=== PATIENT | female | born 1935 | race Caucasian/White ===

== ENCOUNTER → 2016-10-18 | Outpatient (CLI) | payer MEDICARE, OTHER ==
[~2016-10-18] MED LIST: ALEN70TA3 PO; ALPR0.25 PO; AMLO5TAB2 PO; FLUO10CA13 PO; MEMA10TA PO; PRIM250T PO; PROP20TA PO
[2016-10-18 10:35] LABS: BASO # 0.1 x10^3/uL (0.0-0.2); BASO % 1 % (0-3); EOS # 0.1 x10^3/uL (0.0-0.7); EOS % 1 % (0-3); HEMATOCRIT 40.4 % (36.0-47.0); HEMOGLOBIN 13.1 g/dL (12.0-15.5); LYMPH # 1.9 x10^3/uL (1.0-4.8); LYMPH % 26 % (24-48); MEAN CORPUSCULAR HEMOGLOBIN 27 pg (25-35); MEAN CORPUSCULAR HGB CONC 32 g/dL (31-37); MEAN CORPUSCULAR VOLUME 84 fL (79-100); MONO # 0.4 x10^3/uL (0.0-1.1); MONO % 5 % (0-9); NEUT # 5.1 x10^3uL (1.8-7.7); NEUT % 67 % (31-73); PLATELET COUNT 227 x10^3/uL (140-400); RED BLOOD COUNT 4.82 x10^6/uL (3.50-5.40); RED CELL DISTRIBUTION WIDTH 15.1 % (11.5-14.5); WHITE BLOOD COUNT 7.5 x10^3/uL (4.0-11.0)
[2016-10-18 10:47] LABS: ALBUMIN 3.3 g/dL (3.4-5.0); CALCIUM 8.5 mg/dL (8.5-10.1); CREATININE 0.7 mg/dL (0.6-1.0); TOTAL BILIRUBIN 0.3 mg/dL (0.2-1.0); TOTAL PROTEIN 6.6 g/dL (6.4-8.2)
[2016-10-18 10:48] LABS: GFR 80.1
== END | disposition home or self-care (01) ==
LOC: SPEC 10:20
PROVIDERS: ATTEND Internal Medicine
DX: I10 Essential (primary) hypertension (principal)
CPT/HCPCS: 36415; 80053; 80061; 85027

== ENCOUNTER → 2016-11-29 | Outpatient (CLI) | payer MEDICARE, OTHER ==
[2016-11-29 14:45] LABS: BACTERIA,URINE MANY /HPF (0-FEW); BILIRUBIN,URINE NEG (NEG); CLARITY,URINE CLOUDY; COLOR,URINE YELLOW; GLUCOSE,URINE NEG (NEG); NITRITE,URINE POS (NEG); UROBILINOGEN,URINE 0.2 mg/dL (0.2 mg/dL); WBC,URINE >40 /HPF (0-4)
[2016-11-29 14:46] LABS: SQUAMOUS EPITHELIAL CELL,UR FEW /LPF
[2016-11-29 14:47] LABS: GRANULAR CASTS,URINE FEW /HPF
== END | disposition home or self-care (01) ==
LOC: SPEC 14:11
PROVIDERS: ATTEND Internal Medicine
DX: N39.0 Urinary tract infection, site not specified (principal)
CPT/HCPCS: 81001

== ENCOUNTER → 2016-12-01 | Outpatient (CLI) | payer MEDICARE, OTHER ==
[2016-12-01 12:48] LABS: BASO # 0.1 x10^3/uL (0.0-0.2); BASO % 1 % (0-3); EOS # 0.1 x10^3/uL (0.0-0.7); EOS % 1 % (0-3); HEMATOCRIT 35.6 % (36.0-47.0); HEMOGLOBIN 11.7 g/dL (12.0-15.5); LYMPH # 1.7 x10^3/uL (1.0-4.8); LYMPH % 15 % (24-48); MEAN CORPUSCULAR HEMOGLOBIN 27 pg (25-35); MEAN CORPUSCULAR HGB CONC 33 g/dL (31-37); MEAN CORPUSCULAR VOLUME 83 fL (79-100); MONO # 0.8 x10^3/uL (0.0-1.1); MONO % 7 % (0-9); NEUT # 8.8 x10^3uL (1.8-7.7); NEUT % 76 % (31-73); PLATELET COUNT 149 x10^3/uL (140-400); RED BLOOD COUNT 4.28 x10^6/uL (3.50-5.40); RED CELL DISTRIBUTION WIDTH 15.5 % (11.5-14.5); WHITE BLOOD COUNT 11.5 x10^3/uL (4.0-11.0)
== END | disposition home or self-care (01) ==
LOC: SPEC 12:20
PROVIDERS: ATTEND Internal Medicine
DX: I10 Essential (primary) hypertension (principal)
CPT/HCPCS: 36415; 85027

== ENCOUNTER → 2016-12-02 | Outpatient (CLI) | payer MEDICARE, OTHER ==
[2016-12-02 16:46] LABS: ALBUMIN 3.1 g/dL (3.4-5.0); ALBUMIN/GLOBULIN RATIO 0.8 (1.0-1.7); CALCIUM 8.6 mg/dL (8.5-10.1); CREATININE 1.1 mg/dL (0.6-1.0); GFR 47.4; POTASSIUM 3.5 mmol/L (3.5-5.1); TOTAL BILIRUBIN 0.2 mg/dL (0.2-1.0)
== END | disposition home or self-care (01) ==
LOC: SPEC 16:22
PROVIDERS: ATTEND Internal Medicine
DX: E63.9 Nutritional deficiency, unspecified (principal)
CPT/HCPCS: 36415; 80053

== ENCOUNTER → 2016-12-09 | Outpatient (CLI) | payer MEDICARE, OTHER ==
[2016-12-09 09:51] LABS: CALCIUM 8.3 mg/dL (8.5-10.1); CREATININE 0.8 mg/dL (0.6-1.0); GFR 68.5; POTASSIUM 3.2 mmol/L (3.5-5.1)
== END | disposition home or self-care (01) ==
LOC: SPEC 09:31
PROVIDERS: ATTEND Internal Medicine
DX: N39.0 Urinary tract infection, site not specified (principal); E63.9 Nutritional deficiency, unspecified
CPT/HCPCS: 36415; 80048

== ENCOUNTER → 2016-12-09 | Outpatient (CLI) | payer MEDICARE, OTHER ==
[2016-12-09 13:35] LABS: BILIRUBIN,URINE NEG (NEG); CLARITY,URINE TURBID; COLOR,URINE YELLOW; GLUCOSE,URINE NEG (NEG)
[2016-12-09 13:36] LABS: AMORPHOUS SEDIMENT,UR PRESENT /HPF; BACTERIA,URINE FEW /HPF (0-FEW); HYALINE CASTS, URINE FEW /HPF; NITRITE,URINE NEG (NEG); RBC,URINE RARE /HPF (0-2); SQUAMOUS EPITHELIAL CELL,UR FEW /LPF; UROBILINOGEN,URINE 0.2 mg/dL (0.2 mg/dL)
== END | disposition home or self-care (01) ==
LOC: SPEC 13:19
PROVIDERS: ATTEND Internal Medicine
DX: N39.0 Urinary tract infection, site not specified (principal)
CPT/HCPCS: 81001; 87086

== ENCOUNTER → 2016-12-16 | Outpatient (CLI) | payer MEDICARE, OTHER ==
[2016-12-16 12:41] LABS: CALCIUM 8.3 mg/dL (8.5-10.1); POTASSIUM 4.7 mmol/L (3.5-5.1)
== END | disposition home or self-care (01) ==
LOC: SPEC 11:45
PROVIDERS: ATTEND Internal Medicine
DX: E87.6 Hypokalemia (principal)
CPT/HCPCS: 36415; 80048

== ENCOUNTER → 2016-12-29 | Outpatient (CLI) | payer MEDICARE, OTHER ==
[~2016-12-29] MED LIST changes: +ACET325T9 PO; +AMOX1TAB61 PO; +BISM262T6 PO; +BUSP5TAB PO; +DOCU-109 PO; +HYDR453. TP; +MAGN400O7 PO; +POTA20TA4 PO; +PRIM250T28 PO; +RIVA1.5C4 PO; +TRAM50TA PO; +[UNRECOGNIZED DRUG - OTHER] PO
[2016-12-29 18:57] LABS: BILIRUBIN,URINE NEG (NEG); CLARITY,URINE CLOUDY; COLOR,URINE YELLOW; GLUCOSE,URINE NEG (NEG); NITRITE,URINE NEG (NEG); UROBILINOGEN,URINE 0.2 mg/dL (0.2 mg/dL)
[2016-12-29 18:58] LABS: BACTERIA,URINE MANY /HPF (0-FEW); SQUAMOUS EPITHELIAL CELL,UR MANY /LPF
== END | disposition home or self-care (01) ==
LOC: SPEC 17:26
PROVIDERS: ATTEND Internal Medicine
DX: N39.0 Urinary tract infection, site not specified (principal)
CPT/HCPCS: 81001; 87086

== ENCOUNTER 2016-12-30 16:44 | Inpatient (IN) | payer MEDICARE, OTHER ==
[~2016-12-30] VITALS: Ht 167.6 cm; Wt 68.9 kg
[~2016-12-30 16:44] MED LIST changes: -ACET325T9 PO; -AMOX1TAB61 PO; -BISM262T6 PO; -BUSP5TAB PO; -DOCU-109 PO; -HYDR453. TP; -MAGN400O7 PO; -POTA20TA4 PO; -PRIM250T28 PO; -RIVA1.5C4 PO; -TRAM50TA PO; -[UNRECOGNIZED DRUG - OTHER] PO
[2016-12-30] MEDS: NORMAL SALINE IV SCH ×4 (17:15→20:15)
--- NOTE | 2016-12-30 17:30 | EKG ---
[address] [address] Test Date: 2016-12-30 Test Time: 17:27:05 Pat Name: SONYA ADAIR Department: Room: Gender: [employer] Program Chair: : [id number] Requested By: AMANDA ALCARAZ Order Number: [id number] Reading MD: Measurements Intervals Voca Rate: 104 P: -143 IN: 134 QRS: 8 QRSD: 96 T: 45 QT: 332 QTc: 443 Interpretive Statements SUPRAVENTRICULAR RHYTHM QRS(T) CONTOUR ABNORMALITY CANNOT RULE OUT ANTEROSEPTAL MYOCARDIAL DAMAGE ST & T ABNORMALITY, CONSIDER INFERIOR ISCHEMIA OR LEFT VENTRICULAR STRAIN RI6.01 Unconfirmed report No previous ECG available for comparison
--- NOTE | 2016-12-30 17:56 | PHYS DOC ---
Past History Past Medical History: Hypertension, Other Past Surgical History: Other Alcohol Use: None Drug Use: None Adult General Chief Complaint Chief Complaint: WEAKNESS/GENERALIZED HPI HPI Patient is a 81 year old female who presents with fever. The patient reports feeling warm today with fever, given Tylenol prior to arrival. Temperature was [address] of [address]. She complains of generalized weakness and vomiting. She recently took antibiotics for urinary tract infection. Denies cough, shortness breath, chest pain, abdominal pain, flank pain, diarrhea, hematochezia or melena, dysuria or hematuria. She has a sister and resides at the [facility]. PCP is Dr. Domingo. Review of Systems Review of Systems Constitutional: Reports fever and generalized weakness Eyes: Denies change in visual acuity HENT: Denies nasal congestion or sore throat Respiratory: Denies cough or shortness of breath Cardiovascular: Denies chest pain or edema GI: Reports nausea and vomiting. Denies abdominal pain, bloody stools or diarrhea : Denies dysuria or hematuria Musculoskeletal: Denies back pain or joint pain Integument: Denies rash or skin lesions Neurologic: Denies headache, focal weakness or sensory changes Current Medications Current Medications Current Medications Medications (Trade) Dose Ordered Sig/Sophie Start Time Stop Time Status Last Admin Dose Admin Sodium Chloride 2,100 ml @ 2,100 mls/hr Q1H 12/30/16 17:15 Allergies Allergies Allergies Coded Allergies Type Severity Reaction Last Updated Verified No Known Drug Allergies 07/09/13 No Physical Exam Physical Exam Constitutional: Frail, appears ill, non-toxic appearance. HENT: Normocephalic, atraumatic, bilateral external ears normal, oropharynx moist, nose normal. Eyes: PERRLA, EOMI, conjunctiva normal, no discharge. Neck: supple, no stridor. No meningismus Cardiovascular: RRR, no murmurs, no edema. Lungs & Thorax: Coarse, breath sounds present in all lung villanueva, no wheezing, no respiratory distress. Abdomen: soft, nontender, nondistended. Skin: Warm, dry, no erythema, no rash. Back: No CVA tenderness. Extremities: No tenderness, no edema. Neurologic: Alert and oriented X 3, symmetric strength and sensation upper and lower extremities no focal deficits noted. Psychologic: Affect normal, judgement normal, mood normal. Current Patient Data Vital Signs Vital Signs Date Time Temp Pulse Resp B/P (MAP) Pulse Ox O2 Delivery O2 Flow Rate FiO2 12/30/16 17:05 100.2 102 18 97 Room Air EKG EKG Interpreted by me: Rate 104, no acute ST or T wave changes, normal intervals, no ectopy, artifact present. [] Radiology/Procedures Radiology/Procedures Chest x-ray: Interpreted by me: No cardiomegaly,, patchy opacities greatest in the right lung field and left base, suspect pneumonia, no pneumothorax [] Course & Med Decision Making Course & Med Decision Making Pertinent Labs and Imaging studies reviewed. (See chart for details) The patient presents with fever and has outpatient labs showing obvious urinary tract infection. Mildly tachycardic upon arrival with persistent temperature of 100.4. Give IV fluids and Zofran. Labs and UA pending at the end of my shift. I did discuss with Dr. Rosen and recommended admission to the hospital, and he agrees to accept for admission inpatient status. We'll give Rocephin for for presumed UTI as well as azithromycin for possible community-acquired pneumonia. She is to be admitted to the hospital for further evaluation and treatment, and agrees with plan of care. She is being admitted in stable condition. [] Dragon Disclaimer Dragon Disclaimer This chart was dictated in whole or in part using Voice Recognition software in a busy, high-work load, and often noisy Emergency Department environment. It may contain unintended and wholly unrecognized errors or omissions. Departure Departure: Impression: Primary Impression: Sepsis Additional Impression: Urinary tract infection Disposition: ADMITTED INPATIENT Admitting Physician: Daniel Rosen Condition: STABLE Referrals: RADHA DOMINGO MD (PCP) Problem Qualifiers AMANDA ALCAARZ MD Dec 30, 2016 17:56
[2016-12-30] MEDS ORDERED: ONDANSETRON PF 4 MG/2 ML VIAL. IV PRN (18:00)
[2016-12-30] MEDS ORDERED: MORPHINE SULFATE 2 MG/ML DISP.SYRIN. IV PRN (18:00)
[2016-12-30] MEDS ORDERED: AZITHROMYCIN 500 MG in IV NORMAL SALINE 250ML 250 ML IV ONE ×2 (18:10→20:00)
[2016-12-30 18:11] LABS: BASO # 0.1 x10^3/uL (0.0-0.2); BASO % 0 % (0-3); EOS % 0 % (0-3); HEMATOCRIT 35.9 % (36.0-47.0); LYMPH # 1.1 x10^3/uL (1.0-4.8); LYMPH % 7 % (24-48); MEAN CORPUSCULAR HEMOGLOBIN 28 pg (25-35); MEAN CORPUSCULAR HGB CONC 34 g/dL (31-37); MEAN CORPUSCULAR VOLUME 83 fL (79-100); MONO % 6 % (0-9); NEUT # 14.2 x10^3uL (1.8-7.7); NEUT % 87 % (31-73); PLATELET COUNT 206 x10^3/uL (140-400); RED BLOOD COUNT 4.33 x10^6/uL (3.50-5.40); RED CELL DISTRIBUTION WIDTH 15.2 % (11.5-14.5); WHITE BLOOD COUNT 16.4 x10^3/uL (4.0-11.0)
[2016-12-30] MEDS: IV NORMAL SALINE 1,000ML 1,000 ML IV SCH ×2 (18:18→23:11)
[2016-12-30 18:30] LABS: ALBUMIN 2.8 g/dL (3.4-5.0); ALBUMIN/GLOBULIN RATIO 0.6 (1.0-1.7); CALCIUM 8.4 mg/dL (8.5-10.1); CREATININE 0.9 mg/dL (0.6-1.0); GFR 59.8; POTASSIUM 3.4 mmol/L (3.5-5.1); TOTAL BILIRUBIN 0.3 mg/dL (0.2-1.0); TOTAL PROTEIN 7.6 g/dL (6.4-8.2)
[2016-12-30 18:44] LABS: BACTERIA,URINE MOD /HPF (0-FEW); BILIRUBIN,URINE NEG (NEG); CLARITY,URINE HAZY; COLOR,URINE STRAW; GLUCOSE,URINE NEG (NEG); NITRITE,URINE NEG (NEG); SQUAMOUS EPITHELIAL CELL,UR OCC /LPF; UROBILINOGEN,URINE 0.2 mg/dL (0.2 mg/dL)
[2016-12-30 19:00] VITALS: BP 132/68
--- NOTE | 2016-12-30 20:20 | ACF ---
Admission Criteria Forms SEPSIS and OTHER FEBRILE ILLNESS, W/O FOCAL INFECTION Clinical Indications for Admission to Inpatient Care ( Place 'X' for any and all applicable criteria): Admission is indicated for ANY ONE of the following (1)(2)(3)(4): [ ] I. Bacteremia [ ]II. Suspected or identified specific infection requiring hospitalization (eg, meningitis, endocarditis) [ ]III. Hemodynamic instability [ ]IV. Altered mental status [ ]V. Failure or unavailability of outpatient antimicrobial treatment [ ]. Hypoxemia [ ]VII. Seizures [ ]VIII. High-risk febrile neutropenia [ ]IX. Need for parenteral antibiotic in patient who is likely to abuse vascular access device (eg, injection drug user) [A](7) [ ]X. Temperature greater than 104.9 degrees F (40.5 degrees C) (oral) [X]XI. Inpatient admission required rather than observation care because of ANY ONE of the following: [ ]1) Specific infection identified that is too severe for outpatient treatment or observation care trial [ ]2) Metabolic disorder (eg, hypoglycemia, hyperglycemia, metabolic acidosis) that is severe or persistent [ ]3) Temperature greater than 103.1 degrees F (39.5 degrees C) ( oral) that is not responsive to observation care treatment [ ]4) IV fluid to replace significant ongoing (eg, for over 24 hours) losses (> 3 L/m2 per day) [ ]5) Supplemental oxygen or respiratory treatments for over 24 hours that is performable only in acute inpatient setting [ ]6) Parenteral nutrition regimen need that must be implemented on inpatient basis [ ]7) Strict or protective (eg, laminar flow) isolation [X]8) Other condition, treatment or monitoring requiring inpatient admission Extended stay beyond goal length of stay may be needed for(1)(3) [ ]a) Sepsis or septic shock(22) [ ]b) Positive blood cultures [ ]c) Insufficient oral intake [ ]d) High-risk febrile neutropenia(29)(30) [ ]e) Continued fever and clinical instability [ ]f) Clinically active comorbid illness (e.g,heart failure, renal failure , diabetes) The original [facility] [employer] content created by Radha Tolliver has been revised. The portions of the content which have been revised are identified through the use of italic text or in bold, and Radha Tolliver has neither reviewed nor approved the modified material. All other unmodified content is copyright [facility]. Please see references footnoted in the original [facility] edition 2016 Admission Criteria Met?: Yes BUCK[place]ILL Dec 30, 2016 20:20
[2016-12-30] MEDS: IPRATRPIUM/ALBUTEROL 0.5/2.5MG 3 ML NEBU. NEB SCH (20:23)
[2016-12-30] MEDS ORDERED: PRIM250T28 PO (21:37)
[2016-12-30] MEDS ORDERED: MAGN400O7 PO (21:37)
[2016-12-30] MEDS ORDERED: [UNRECOGNIZED DRUG - OTHER] PO (21:40)
[2016-12-30] MEDS ORDERED: BISM262T6 PO (21:41)
[2016-12-30] MEDS ORDERED: MEMA10TA PO (21:42)
[2016-12-30] MEDS ORDERED: DOCU-109 PO (21:43)
[2016-12-30] MEDS ORDERED: traMADol 50 MG TABLET PO PRN (21:45)
[2016-12-30] MEDS ORDERED: BISMUTH SUBSALICYLATE 262 MG TAB.CHEW PO PRN (21:45)
[2016-12-30] MEDS ORDERED: HYDROCORTISONE 1% TOPICAL CREAM 30GM TUBE. TP PRN (21:45)
[2016-12-30] MEDS ORDERED: MAGNESIUM HYDROXIDE 2,400 MG/30 ML ORAL.SUSP. PO PRN (21:45)
[2016-12-30] MEDS ORDERED: DOCUSATE SODIUM 100 MG CAPSULE PO PRN (21:45)
[2016-12-30] MEDS ORDERED: RIVA1.5C4 PO (21:46)
[2016-12-30] MEDS ORDERED: HYDR453. TP (21:46)
[2016-12-30] MEDS ORDERED: BUSP5TAB PO (21:50)
[2016-12-30] MEDS ORDERED: TRAM50TA PO (21:50)
[2016-12-30] MEDS ORDERED: ACET325T9 PO (21:50)
[2016-12-30] MEDS ORDERED: POTA20TA4 PO (21:50)
[2016-12-30 22:00] LABS: % LYMPHS 8 % (24-48); % MONOS 8 % (0-10); % SEGS 84 % (35-66); PLT ESTIMATE ADEQUATE (ADEQUATE)
[2016-12-30 23:00] VITALS: BP 134/74
[2016-12-30] MEDS: MEMANTINE 10 MG TABLET. PO SCH (23:10)
[2016-12-30] MEDS: ACETAMINOPHEN 325 MG TABLET PO PRN (23:10)
[2016-12-30] MEDS: RIVASTIGMINE. 1.5 MG CAPSULE. PO SCH (23:10)
[2016-12-31] MEDS: IPRATRPIUM/ALBUTEROL 0.5/2.5MG 3 ML NEBU. NEB SCH ×3 (05:31→16:08)
[2016-12-31 05:53] VITALS: BP 157/80
[2016-12-31 06:44] LABS: BASO % 0 % (0-3); EOS # 0.1 x10^3/uL (0.0-0.7); EOS % 1 % (0-3); HEMATOCRIT 32.3 % (36.0-47.0); HEMOGLOBIN 10.6 g/dL (12.0-15.5); LYMPH # 1.4 x10^3/uL (1.0-4.8); LYMPH % 10 % (24-48); MEAN CORPUSCULAR HEMOGLOBIN 28 pg (25-35); MEAN CORPUSCULAR HGB CONC 33 g/dL (31-37); MEAN CORPUSCULAR VOLUME 84 fL (79-100); MONO # 0.9 x10^3/uL (0.0-1.1); MONO % 6 % (0-9); NEUT # 12.3 x10^3uL (1.8-7.7); NEUT % 83 % (31-73); PLATELET COUNT 185 x10^3/uL (140-400); RED BLOOD COUNT 3.86 x10^6/uL (3.50-5.40); RED CELL DISTRIBUTION WIDTH 15.3 % (11.5-14.5); WHITE BLOOD COUNT 14.8 x10^3/uL (4.0-11.0)
[2016-12-31 06:53] LABS: CALCIUM 7.3 mg/dL (8.5-10.1); CREATININE 0.8 mg/dL (0.6-1.0); GFR 68.5; POTASSIUM 3.3 mmol/L (3.5-5.1)
--- NOTE | 2016-12-31 08:26 | RAD ---
AP PORTABLE CHEST Clinical Indication: fever. Comparison: AP chest 12/01/2010. Findings: The cardiomediastinal silhouette is normal. Mild bibasilar airspace disease. There is irregular opacity in the right upper lung measuring about 2 cm. Possible airspace opacity left perihilar. There is no pneumothorax. No pleural effusion is appreciated. There is no acute bone abnormality. IMPRESSION: 1. Irregular opacity in the right upper lung. Pneumonia, neoplasm, or atelectasis are considerations. 2. Mild bibasilar airspace disease.
[2016-12-31] MEDS: RIVASTIGMINE. 1.5 MG CAPSULE. PO SCH ×2 (08:37→20:53)
[2016-12-31] MEDS: PROPRANOLOL 20 MG TABLET. PO SCH (08:38)
[2016-12-31] MEDS: busPIRone 5 MG TABLET. PO SCH (08:38)
[2016-12-31] MEDS: ACETAMINOPHEN 325 MG TABLET PO PRN ×2 (08:39→20:53)
[2016-12-31] MEDS: POTASSIUM CHLORIDE 20 MEQ TABLET.ER. PO SCH (08:39)
[2016-12-31] MEDS: FLUoxetine HCL 10 MG CAPSULE PO SCH (08:41)
[2016-12-31] MEDS: MEMANTINE 10 MG TABLET. PO SCH ×2 (08:41→20:53)
[2016-12-31] MEDS: amLODIPine BESYLATE 5 MG TABLET PO SCH (08:41)
[2016-12-31] MEDS: PRIMIDONE 250 MG TABLET PO SCH (08:41)
[2016-12-31 10:23] VITALS: BP 120/73
[2016-12-31] MEDS ORDERED: VANCOMYCIN PER PHARMACY MC PRN (14:00)
[2016-12-31] MEDS: IV NORMAL SALINE 1,000ML 1,000 ML IV SCH (14:15)
--- NOTE | 2016-12-31 14:39 | HP ---
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 She did complain of generalized weakness, nausea and vomiting. Took antibiotics for urinary tract infection without much improvement. She denied any cough, shortness of breath, chest pain, abdominal pain, flank pain, hematochezia, melena, dysuria, hematuria. She has been a resident at [facility] and her primary care physician is Dr. Medeiros. She was evaluated in the Emergency Room, was found to have leukocytosis. Her temperature on arrival was 100.2 and she also has mild hypokalemia. Chest x-ray showed regular opacity in the right upper lung, pneumonia, neoplasm or atelectasis consideration and she has mild bilateral airspace disease. She was admitted to continue with IV fluid, IV antibiotic, Rocephin and Zithromax. PAST MEDICAL HISTORY: Significant for hypertension, osteoporosis and cognitive impairment rather with essential tremor. PAST SURGICAL HISTORY: Unremarkable. FAMILY HISTORY: Unremarkable. SOCIAL HISTORY: She is a resident at [facility]. She is demented and does not give any useful information. ALLERGIES: She has no known drug allergies. MEDICATIONS: She is currently on following medications: Tylenol 650 mg p.o. every 6 hours, ethylene donate sodium for Fosamax 70 mg every Monday, amlodipine besylate 5 mg once a day, bismuth facilitate 262 mg tablet chewable at bedtime for diarrhea, buspirone 5 mg daily, Colace 100 mg daily p.r.n. for constipation, fluoxetine 10 mg once a day, hydrocortisone cream applied topically twice a day for itching as needed, magnesium hydroxide for milk of magnesia 30 mL p.o. daily p.r.n. for constipation, memantine 28 mg once a day extended release tablet, potassium chloride 20 mEq once a day, primidone 500 mg daily, propranolol 20 mg once a day, rivastigmine 1.5 mg twice a day, tramadol 50 mg every 6 hours as needed. REVIEW OF SYSTEMS: As per history of present illness. PHYSICAL EXAMINATION: GENERAL: On arrival, the patient was slightly pale, but no jaundice, cyanosis, or thyromegaly. No jugular venous distension. No limb edema. VITAL SIGNS: Her heart rate was 102, blood pressure was 132/68, temperature was 100.2, respiratory rate was 18 and oxygen saturation was 97%. HEAD, EYES, EARS, NOSE AND THROAT: Showed normocephalic, atraumatic. NECK: Supple. HEART: Showed normal first and second heart sounds with no gallop, rub or murmur. CHEST: Clear to auscultation. No crepitation or rhonchi. ABDOMEN: Distended, soft, nontender. NEUROLOGIC: She is demented; however, without any obvious neurological deficit. Cranial nerves intact. EXTREMITIES: She moves extremities without difficulty. She is able to walk with a walker and uses a wheelchair. LABORATORY DATA: On arrival showed her white cell count of 16,400, hemoglobin 12, hematocrit 36, MCV 83 and platelet count of 206,000 with a manual differential showed 87% polymorphs, 7% lymphocytes and 6% monocytes. Her serum sodium was 138, potassium 3.4, chloride 100, bicarbonate 26, anion gap of 12, BUN 16, creatinine 0.9, estimated GFR was 60 mL per minute. Her glucose 172, calcium was 8.2. Lactic acid was only 1.2. Total bilirubin, AST, ALT, alkaline phosphatase were normal. Her beta natriuretic peptide was 1300. Total protein was 7.6, albumin was 2.8. Her urinalysis showed the urine was straw color, hazy with a pH of 5.5, specific gravity of 1.025, large amount of protein. The urine was negative for glucose, ketones, blood, nitrite and leukocyte esterase. There are 1 to 2 rbc's, 5 to 10 wbc's and moderate amount of bacteria. Her chest x-ray showed that the cardiomediastinal silhouette is normal, mild bibasilar airspace disease. There is rregular opacity in the right upper lung measuring about 2 cm. Possible airspace opacity in the left perihilum. There is no pneumothorax. No pleural effusion is appreciated. There is no acute bony abnormality. ASSESSMENT AND PLAN: The patient was admitted with sepsis, urinary tract infection. She has obviously leukocytosis, tachycardia and fever; however, her urinalysis is not really strikingly consistent with urinary tract infection. She has only 5 to 10 wbc's. The urine was negative for nitrite and leukocyte esterase. Although, there is moderate amount of bacteria. The chest x-ray showed findings more consistent with pneumonia. Given that she comes from a long-term, I will probably switch her to Levaquin and that will cover most of the organisms. We will would continue with Rocephin and Zithromax for now and await the results of the culture and sensitivity as she seems to be responding to this treatment. CHRISSY LICEA MD DR: ADDY/frank JOB#: [id number] / [id number]
[2016-12-31 14:52] VITALS: BP 153/74
[2016-12-31] MEDS: PIPERACILLIN/TAZOBACTAM 3.375 GM in IV NORMAL SALINE 50ML 50 ML IV SCH ×2 (14:53→21:42)
[2016-12-31] MEDS ORDERED: VANCOMYCIN 1.5 GM in IV NORMAL SALINE 500ML 500 ML IV ONE (15:00)
[2016-12-31 19:55] VITALS: BP 164/79
[2016-12-31 21:41] VITALS: BP 141/67
--- NOTE | 2016-12-31 23:19 | PN ---
DATE: 12/31/2016 SUBJECTIVE: The patient is resting slightly propped up in bed, in no apparent respiratory distress. She was sleepy, but arousable. On questioning her, denied any complaint. The nursing staff stated that she is confused; however, she stated that she was able to walk with a walker and has an incontinent episode. PHYSICAL EXAMINATION: GENERAL: When I examined her this afternoon, she looked well and was clearly in no apparent respiratory distress, pale, cachectic, but no jaundice, cyanosis, or thyromegaly. No jugular venous distention. No limb edema. VITAL SIGNS: Her heart rate was 82, blood pressure 120/73, temperature was 99.2, respiratory rate 20, and oxygen saturation was 94%. HEAD, EYES, EARS, NOSE AND THROAT: Showed normocephalic, atraumatic. NECK: Supple. HEART: Showed normal first and second heart sounds with no gallop, rub or murmur. CHEST: Clear to auscultation. No crepitation or rhonchi. ABDOMEN: Mild distended, soft, nontender. NEUROLOGIC: She ; however, all her cranial nerves are intact. She moves extremities without difficulty. Her intake over the last 24 hours was 920 no output was recorded. LABORATORY DATA: Her lab work this morning showed a white cell count came down to 14,800, hemoglobin 10.6, hematocrit 32, MCV 84 and platelet count 285,000. Her chemistry showed a serum sodium 142, potassium 3.3, chloride 105, bicarbonate 26, anion gap of 11, BUN 12, creatinine 0.8, estimated GFR was 68 mL per minute. Her glucose was 121, calcium was 7.3. ASSESSMENT AND PLAN: So far her urine and blood culture was sent, but no growth detected. Given her urinalysis and the findings on x-ray, I will switch her to vancomycin and Zosyn. Vancomycin with be dosed by the pharmacy, and I added Zosyn 3.375 grams IV every 8 hours. I will repeat her lab works tomorrow and obviously will adjust antibiotics according to the finding on her blood and urine culture. CHRISSY LICEA MD DR: ADDY/frank JOB#: [id number] / [id number]
[2016-12-31 23:40] VITALS: BP 115/65
[2017-01-01] MEDS: PIPERACILLIN/TAZOBACTAM 3.375 GM in IV NORMAL SALINE 50ML 50 ML IV SCH ×3 (05:27→22:09)
[2017-01-01 05:33] VITALS: BP 149/76
[2017-01-01 05:43] LABS: BASO # 0.1 x10^3/uL (0.0-0.2); BASO % 1 % (0-3); EOS # 0.1 x10^3/uL (0.0-0.7); EOS % 1 % (0-3); HEMATOCRIT 31.7 % (36.0-47.0); HEMOGLOBIN 10.4 g/dL (12.0-15.5); LYMPH # 1.6 x10^3/uL (1.0-4.8); LYMPH % 15 % (24-48); MEAN CORPUSCULAR HEMOGLOBIN 28 pg (25-35); MEAN CORPUSCULAR HGB CONC 33 g/dL (31-37); MEAN CORPUSCULAR VOLUME 84 fL (79-100); MONO # 0.7 x10^3/uL (0.0-1.1); MONO % 7 % (0-9); NEUT % 76 % (31-73); PLATELET COUNT 200 x10^3/uL (140-400); RED BLOOD COUNT 3.78 x10^6/uL (3.50-5.40); RED CELL DISTRIBUTION WIDTH 15.3 % (11.5-14.5); WHITE BLOOD COUNT 10.6 x10^3/uL (4.0-11.0)
[2017-01-01 06:23] LABS: ALBUMIN 2.4 g/dL (3.4-5.0); ALBUMIN/GLOBULIN RATIO 0.6 (1.0-1.7); CALCIUM 7.7 mg/dL (8.5-10.1); CREATININE 0.9 mg/dL (0.6-1.0); GFR 59.8; POTASSIUM 3.2 mmol/L (3.5-5.1); TOTAL BILIRUBIN 0.4 mg/dL (0.2-1.0); TOTAL PROTEIN 6.7 g/dL (6.4-8.2)
[2017-01-01] MEDS: busPIRone 5 MG TABLET. PO SCH (09:01)
[2017-01-01] MEDS: POTASSIUM CHLORIDE 20 MEQ TABLET.ER. PO SCH ×3 (09:02→22:10)
[2017-01-01] MEDS: PROPRANOLOL 20 MG TABLET. PO SCH (09:02)
[2017-01-01] MEDS: amLODIPine BESYLATE 5 MG TABLET PO SCH (09:03)
[2017-01-01] MEDS: FLUoxetine HCL 10 MG CAPSULE PO SCH (09:03)
[2017-01-01] MEDS: PRIMIDONE 250 MG TABLET PO SCH (09:03)
[2017-01-01] MEDS: MEMANTINE 10 MG TABLET. PO SCH ×2 (09:03→22:10)
[2017-01-01] MEDS: RIVASTIGMINE. 1.5 MG CAPSULE. PO SCH ×2 (09:04→22:11)
[2017-01-01 10:30] VITALS: BP 138/76
[2017-01-01] MEDS ORDERED: POTASSIUM CHLORIDE 20 MEQ TABLET.ER. PO ONE (13:00)
[2017-01-01 14:04] VITALS: BP 129/58
[2017-01-01] MEDS ORDERED: VANCOMYCIN 1 GM in IV NORMAL SALINE 250ML 250 ML IV SCH (15:00)
[2017-01-01] MEDS ORDERED: ALENDRONATE SODIUM 35 MG TABLET PO SCH (16:00)
[2017-01-01 19:41] VITALS: BP 177/70
--- NOTE | 2017-01-01 21:56 | PN ---
DATE: 01/01/2017 SUBJECTIVE: The patient is sitting comfortably, eating her lunch, in no apparent distress. She is definitely more awake, alert, responding more appropriately today. She apparently did spike a temperature last night up to 102, has responded to Tylenol. Her urine culture showed growth of 50-100,000 mixed urogenital mindy. Her urinalysis was really unremarkable and her chest x-ray was more suggestive of bilateral infiltrate and we did change her IV antibiotics to Zosyn and vancomycin. OBJECTIVE: GENERAL: When I saw her this afternoon, she looked pale, but no jaundice, cyanosis, lymphadenopathy, or thyromegaly. No jugular venous distension. No limb edema. VITAL SIGNS: Her heart rate was 91, blood pressure 138/76, temperature was 99.1, respiratory rate 20, and oxygen saturation was 97% on 1 liter of oxygen. HEENT: Showed normocephalic, atraumatic. NECK: Supple. HEART: Showed normal first and second heart sounds with no gallop, rub or murmur. CHEST: Clear to auscultation. No crepitation or rhonchi. ABDOMEN: Distended, soft, nontender. No guarding or rigidity. No organomegaly. Hernial orifices intact. Bowel sounds normal. NEUROLOGIC: She has some cognitive impairment, however, without any obvious lateralizing signs. Her cranial nerves are intact. She moves extremities without difficulty. She ambulates with a walker with minimal assistance. Her intake over the last 24 hours was 2400. There was no output recorded. LABORATORY DATA: Her lab work this morning showed a white cell count of 10,600, hemoglobin 10.4, hematocrit 31.7, MCV 84 and platelet count 200,000. Her chemistry showed a serum sodium of 140, potassium 3.2, chloride 104, bicarbonate 26, anion gap of 10, BUN 10, creatinine 0.9, estimated GFR was 59 mL per minute. Her glucose was 99, calcium was 7.7. Total bilirubin, AST, ALT, alkaline phosphatase were normal. Total protein 6.7, albumin 2.4. ASSESSMENT AND PLAN: Healthcare-associated pneumonia, for which she is now on IV vancomycin and Zosyn. Hypokalemia that will be replenished. Other issues include hypertension that seems to be well controlled. 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 We will continue with IV antibiotics, replenish the potassium. If her blood culture remains negative, we will discontinue vancomycin tomorrow. CHRISSY LICEA MD DR: ADDY/frank JOB#: [id number] / [id number]
[2017-01-01] MEDS: ACETAMINOPHEN 325 MG TABLET PO PRN (22:09)
[2017-01-02 05:00] VITALS: BP 173/93
[2017-01-02] MEDS: PIPERACILLIN/TAZOBACTAM 3.375 GM in IV NORMAL SALINE 50ML 50 ML IV SCH ×3 (05:51→21:42)
[2017-01-02 06:17] LABS: CALCIUM 7.7 mg/dL (8.5-10.1); CREATININE 0.7 mg/dL (0.6-1.0); GFR 79.9; POTASSIUM 3.7 mmol/L (3.5-5.1)
[2017-01-02] MEDS: RIVASTIGMINE. 1.5 MG CAPSULE. PO SCH ×2 (09:20→21:10)
[2017-01-02] MEDS: FLUoxetine HCL 10 MG CAPSULE PO SCH (09:20)
[2017-01-02] MEDS: busPIRone 5 MG TABLET. PO SCH (09:21)
[2017-01-02] MEDS: PRIMIDONE 250 MG TABLET PO SCH (09:21)
[2017-01-02] MEDS: PROPRANOLOL 20 MG TABLET. PO SCH (09:21)
[2017-01-02] MEDS: amLODIPine BESYLATE 5 MG TABLET PO SCH (09:21)
[2017-01-02] MEDS: MEMANTINE 10 MG TABLET. PO SCH ×2 (09:23→21:11)
[2017-01-02] MEDS: POTASSIUM CHLORIDE 20 MEQ TABLET.ER. PO SCH ×3 (09:23→21:11)
[2017-01-02 11:14] VITALS: BP 160/87
[2017-01-02] MEDS: CALCIUM CARB/VIT D3 500/200 TABLET PO SCH ×2 (13:53→16:48)
[2017-01-02 15:00] LABS: VANC TR 5.7 mcg/mL (10.0-20.0)
[2017-01-02 15:54] VITALS: BP 174/99
[2017-01-02 19:29] VITALS: BP 164/75
[2017-01-02] MEDS: ACETAMINOPHEN 325 MG TABLET PO PRN (21:11)
[2017-01-02 22:46] VITALS: BP 131/67
--- NOTE | 2017-01-02 23:36 | PN ---
DATE: 01/02/2017 PROBLEMS: 1. Healthcare-associated pneumonia. 2. Hypokalemia, resolved. 3. Dementia. 4. Severe tremor. 5. Sepsis. 6. Negative urinary tract infection. 7. Protein malnutrition. SUBJECTIVE: Assuming the care of this pleasant 81-year-old female who came from ____ with fever, subsequent urinary cultures negative, but her x-ray shows more of an indication of pneumonia. Chart was reviewed. The patient complains of feeling a little bit dizzy this morning. Otherwise, has no complaints. OBJECTIVE: VITAL SIGNS: Blood pressure 173/93, pulse 86, and pulse ox 100% on room air, temperature 98.5. GENERAL: The patient is pleasantly confused. She has a severe tremor. HEENT: Her tongue was moist. LUNGS: With few crackles. CARDIOVASCULAR: Regular rhythm and rate. ABDOMEN: Soft, nontender. EXTREMITIES: Without edema. LABORATORY DATA: White blood cell count is normal this morning. She is slightly anemic now after hydration, 10.4/31.7. Electrolytes are normal with exception of calcium of 7.7 that may be also delusional as her admitting calcium was 8.4. PLAN: We will give her low dose calcium supplement, start on nutritional supplements. We will discontinue the vancomycin. RAMA LANDRY DO DR: CARMENCITA/frank JOB#: [id number] / [id number]
[2017-01-03 03:06] VITALS: BP 161/76
[2017-01-03] MEDS ORDERED: IV NORMAL SALINE 100ML 100 ML ONE (05:31)
[2017-01-03] MEDS: PIPERACILLIN/TAZOBACTAM 3.375 GM in IV NORMAL SALINE 50ML 50 ML IV SCH (05:38)
[2017-01-03 06:39] LABS: BASO # 0.1 x10^3/uL (0.0-0.2); BASO % 1 % (0-3); EOS # 0.1 x10^3/uL (0.0-0.7); EOS % 2 % (0-3); HEMATOCRIT 30.4 % (36.0-47.0); HEMOGLOBIN 10.1 g/dL (12.0-15.5); LYMPH # 1.4 x10^3/uL (1.0-4.8); LYMPH % 18 % (24-48); MEAN CORPUSCULAR HEMOGLOBIN 28 pg (25-35); MEAN CORPUSCULAR HGB CONC 33 g/dL (31-37); MEAN CORPUSCULAR VOLUME 83 fL (79-100); MONO # 0.7 x10^3/uL (0.0-1.1); MONO % 10 % (0-9); NEUT # 5.4 x10^3uL (1.8-7.7); NEUT % 70 % (31-73); PLATELET COUNT 269 x10^3/uL (140-400); RED BLOOD COUNT 3.67 x10^6/uL (3.50-5.40); RED CELL DISTRIBUTION WIDTH 15.5 % (11.5-14.5); WHITE BLOOD COUNT 7.7 x10^3/uL (4.0-11.0)
[2017-01-03 06:52] LABS: ALBUMIN 2.2 g/dL (3.4-5.0); ALBUMIN/GLOBULIN RATIO 0.5 (1.0-1.7); CALCIUM 8.4 mg/dL (8.5-10.1); CREATININE 0.7 mg/dL (0.6-1.0); GFR 79.9; MAGNESIUM 1.7 mg/dL (1.8-2.4); POTASSIUM 3.8 mmol/L (3.5-5.1); TOTAL BILIRUBIN 0.3 mg/dL (0.2-1.0); TOTAL PROTEIN 6.7 g/dL (6.4-8.2)
[2017-01-03] MEDS: POTASSIUM CHLORIDE 20 MEQ TABLET.ER. PO SCH (09:26)
[2017-01-03] MEDS: PROPRANOLOL 20 MG TABLET. PO SCH (09:27)
[2017-01-03] MEDS: FLUoxetine HCL 10 MG CAPSULE PO SCH (09:27)
[2017-01-03] MEDS: busPIRone 5 MG TABLET. PO SCH (09:27)
[2017-01-03] MEDS: CALCIUM CARB/VIT D3 500/200 TABLET PO SCH (09:28)
[2017-01-03] MEDS: MEMANTINE 10 MG TABLET. PO SCH (09:28)
[2017-01-03 09:34] VITALS: BP 161/76
[2017-01-03] MEDS: amLODIPine BESYLATE 5 MG TABLET PO SCH (09:34)
--- NOTE | 2017-01-03 09:36 | RAD ---
Indication: Pneumonia. Time of exam 0902 hours. Correlation is made with prior study from 12/30/2016. The heart size is stable. Right upper lobe pneumonia persists and appears to be slightly increased since prior. The left lung remains clear. There is slight blunting of the right costophrenic angle suggestive of minimal pleural fluid or pleural thickening. Impression: Slight increase in right upper lobe pneumonia and right basilar effusion when compared with exam 4 days earlier.
[2017-01-03] MEDS: PRIMIDONE 250 MG TABLET PO SCH (09:41)
[2017-01-03] MEDS: RIVASTIGMINE. 1.5 MG CAPSULE. PO SCH (09:41)
[2017-01-03] MEDS ORDERED: AMOX1TAB61 PO (10:00)
--- NOTE | 2017-01-04 14:00 | PDOC3 ---
Discharge Summary Visit Information Date of Admission: Dec 30, 2016 Date of Discharge: Jan 03, 2017 Final Diagnosis Problems Medical Problems: (1) Sepsis Status: Acute (2) #2 healthcare associated pneumonia #3 severe tremor #4 sepsis #5 hypokalemia 6 dementia #7 severe protein calorie malnutrition #8 weakness Status: Acute Problems: Brief Hospital Course Allergies Allergies Coded Allergies Type Severity Reaction Last Updated Verified No Known Drug Allergies 07/09/13 No Vital Signs Vital Signs Date Time Temp Pulse Resp B/P (MAP) Pulse Ox O2 Delivery O2 Flow Rate FiO2 01/03/17 09:34 80 161/76 01/03/17 08:30 Room Air 01/03/17 03:06 98.4 20 94 01/01/17 19:41 1.0 Lab Results Laboratory Tests Test 01/02/17 14:35 01/03/17 06:18 Vancomycin Level Trough 5.7 mcg/mL (10.0-20.0) Vancomycin Last Dose Date 01/01/17 Vancomycin Last Dose Time 1500 White Blood Count 7.7 x10^3/uL (4.0-11.0) Red Blood Count 3.67 x10^6/uL (3.50-5.40) Hemoglobin 10.1 g/dL (12.0-15.5) Hematocrit 30.4 % (36.0-47.0) Mean Corpuscular Volume 83 fL (79-100) Mean Corpuscular Hemoglobin 28 pg (25-35) Mean Corpuscular Hemoglobin Concent 33 g/dL (31-37) Red Cell Distribution Width 15.5 % (11.5-14.5) Platelet Count 269 x10^3/uL (140-400) Neutrophils (%) (Auto) 70 % (31-73) Lymphocytes (%) (Auto) 18 % (24-48) Monocytes (%) (Auto) 10 % (0-9) Eosinophils (%) (Auto) 2 % (0-3) Basophils (%) (Auto) 1 % (0-3) Neutrophils # (Auto) 5.4 x10^3uL (1.8-7.7) Lymphocytes # (Auto) 1.4 x10^3/uL (1.0-4.8) Monocytes # (Auto) 0.7 x10^3/uL (0.0-1.1) Eosinophils # (Auto) 0.1 x10^3/uL (0.0-0.7) Basophils # (Auto) 0.1 x10^3/uL (0.0-0.2) Sodium Level 139 mmol/L (136-145) Potassium Level 3.8 mmol/L (3.5-5.1) Chloride Level 105 mmol/L (98-107) Carbon Dioxide Level 28 mmol/L (21-32) Anion Gap 6 (6-14) Blood Urea Nitrogen 8 mg/dL (7-20) Creatinine 0.7 mg/dL (0.6-1.0) Estimated GFR (Cockcroft-Gault) 79.9 BUN/Creatinine Ratio 11 (6-20) Glucose Level 99 mg/dL (70-99) Calcium Level 8.4 mg/dL (8.5-10.1) Magnesium Level 1.7 mg/dL (1.8-2.4) Total Bilirubin 0.3 mg/dL (0.2-1.0) Aspartate Amino Transf (AST/SGOT) 17 U/L (15-37) Alanine Aminotransferase (ALT/SGPT) 18 U/L (14-59) Alkaline Phosphatase 49 U/L (46-116) Total Protein 6.7 g/dL (6.4-8.2) Albumin 2.2 g/dL (3.4-5.0) Albumin/Globulin Ratio 0.5 (1.0-1.7) Brief Hospital Course Hospital course: This is a 81-year-old female who was admitted by Dr. Daneil Isbell. She was found to be septic with healthcare associated pneumonia. The urinary tract infection infection was ruled out. She also had was found to have severe protein calorie nutrition. Supplements were ordered. She received IV antibiotics and IV fluids. And progressively got better through the course of her hospitalization. On the day of discharge she was ready to be discharged back to [facility] on skilled services. Hypokalemia and hypocalcemia were treated. Discharge Information Condition at Discharge: Improved Disposition/Orders: D/C to Another Facility Dischare Medications Current Medications Sodium Chloride 2,100 ml @ 2,100 mls/hr Q1H IV ; Start 12/30/16 at 17:15; Stop 12/30/16 at 20:25; Status DC Ondansetron HCl (Zofran) 4 mg PRN Q4HRS PRN IV NAUSEA/VOMITING; Start 12/30/16 at 18:00; Stop 12/31/16 at 17:59; Status DC Morphine Sulfate (Morphine 2mg Syringe) 2 mg PRN Q2HR PRN IV PAIN; Start at 18:00; Stop 12/31/16 at 17:59; Status DC Sodium Chloride 1,000 ml @ 100 mls/hr Q10H IV Last administered on 12/30/16 23:11; Start 12/30/16 at 18:15; Stop 12/31/16 at 18:14; Status DC Acetaminophen (Tylenol) 650 mg PRN Q4HRS PRN PO FEVER Last administered on 12/31 08:39; Start 12/30/16 at 18:00; Stop 12/31/16 at 17:59; Status DC Albuterol/ Ipratropium (Duoneb) 3 ml RTQID NEB Last administered on 12/31/16 16:08; Start 12/30/16 at 20:00; Stop 12/31/16 at 19:59; Status DC Ceftriaxone Sodium 1 gm/ Sodium Chloride 50 ml @ 100 mls/hr 1X ONCE IV ; Start 12/30/16 at 18:10; Stop 12/30/16 at 18:39; Status DC Azithromycin 500 mg/Sodium Chloride 250 ml @ 250 mls/hr 1X ONCE IV ; Start at 18:10; Stop 12/30/16 at 19:09; Status DC Ceftriaxone Sodium 1 gm/ Sodium Chloride 50 ml @ 100 mls/hr 1X ONCE IV Last administered on 12/30/16 20:21; Start 12/30/16 at 20:00; Stop 12/30/16 at 20:29 ; Status DC Azithromycin 500 mg/Sodium Chloride 250 ml @ 250 mls/hr 1X ONCE IV Last administered on 12/30/16 20:21; Start 12/30/16 at 20:00; Stop 12/30/16 at 20:59 ; Status DC Alendronate Sodium (Fosamax) 70 mg QSU PO ; Start 01/01/17 at 16:00; Stop at 16:00; Status DC Amlodipine Besylate (Norvasc) 5 mg DAILY PO Last administered on 01/03/17 09: 34; Start 12/31/16 at 09:00; Stop 01/03/17 at 12:12; Status DC Bismuth Subsalicylate (Pepto Bismal) 262 mg PRN QHS PRN PO DIARRHEA; Start at 21:45; Stop 01/03/17 at 12:12; Status DC Buspirone HCl (Buspar) 5 mg DAILY PO Last administered on 01/03/17 09:27; Start 12/31/16 at 09:00; Stop 01/03/17 at 12:12; Status DC Docusate Sodium (Colace) 100 mg PRN DAILY PRN PO CONSTIPATION; Start 12/30/16 at 21:45; Stop 01/03/17 at 12:12; Status DC Fluoxetine HCl (PROzac) 10 mg DAILY PO Last administered on 01/03/17 09:27; Start 12/31/16 at 09:00; Stop 01/03/17 at 12:12; Status DC Hydrocortisone (Cortaid) 1 stephanie PRN BID PRN TP ITCHING; Start 12/30/16 at 21:45 ; Stop 01/03/17 at 12:12; Status DC Magnesium Hydroxide (Milk Of Magnesia) 2,400 mg PRN DAILY PRN PO CONSTIPATION; Start 12/30/16 at 21:45; Stop 01/03/17 at 12:12; Status DC Memantine (Namenda) 10 mg BID PO Last administered on 01/03/17 09:28; Start at 22:15; Stop 01/03/17 at 12:12; Status DC Potassium Chloride (Klor-Con) 20 meq DAILY PO Last administered on 01/01/17 09 :02; Start 12/31/16 at 09:00; Stop 01/01/17 at 12:37; Status DC Primidone (Mysoline) 500 mg DAILY PO Last administered on 01/03/17 09:41; Start 12/31/16 at 09:00; Stop 01/03/17 at 12:12; Status DC Propranolol HCl (Inderal) 20 mg DAILY PO Last administered on 01/03/17 09:27; Start 12/31/16 at 09:00; Stop 01/03/17 at 12:12; Status DC Rivastigmine Tartrate (Exelon) 1.5 mg BID PO Last administered on 01/03/17 09: 41; Start 12/30/16 at 22:15; Stop 01/03/17 at 12:12; Status DC Tramadol HCl (Ultram) 50 mg PRN Q6HRS PRN PO PAIN; Start 12/30/16 at 21:45; Stop 01/03/17 at 12:12; Status DC Vancomycin HCl (Vanco Per Pharmacy) 1 each PRN DAILY PRN MC SEE COMMENTS Last administered on 12/31/16 14:08; Start 12/31/16 at 14:00; Stop 01/03/17 at 12:12 ; Status DC Piperacillin Sod/ Tazobactam Sod 3.375 gm/Sodium Chloride 50 ml @ 100 mls/hr Q8H IV Last administered on 01/03/17 05:38; Start 12/31/16 at 14:00; Stop at 12:12; Status DC Vancomycin HCl 1.5 gm/Sodium Chloride 500 ml @ 250 mls/hr 1X ONCE IV Last administered on 12/31/16 15:56; Start 12/31/16 at 15:00; Stop 12/31/16 at 17:00 ; Status DC Vancomycin HCl 1 gm/Sodium Chloride 250 ml @ 250 mls/hr Q24H IV Last administered on 01/01/17 14:41; Start 01/01/17 at 15:00; Stop 01/02/17 at 12:21 ; Status DC Vancomycin HCl 1 each 1X ONCE MC Last administered on 01/02/17 13:51; Start 01/02/17 at 14:30; Stop 01/02/17 at 14:31; Status DC Acetaminophen (Tylenol) 650 mg PRN Q6HRS PRN PO PAIN / TEMP Last administered on 01/02/17 21:11; Start 12/31/16 at 20:15; Stop 01/03/17 at 12:12; Status DC Potassium Chloride (Klor-Con) 40 meq 1X ONCE PO Last administered on 13:20; Start 01/01/17 at 13:00; Stop 01/01/17 at 13:01; Status DC Potassium Chloride (Klor-Con) 20 meq TID PO Last administered on 01/03/17 09: 26; Start 01/01/17 at 14:00; Stop 01/03/17 at 12:12; Status DC Calcium/Vitamin D (Oscal D 500mg/ 200uts) 1 tab BIDWMEALS PO Last administered on 01/03/17t 09:28; Start 01/02/17 at 12:30; Stop 01/03/17 at 12:12; Status DC Sodium Chloride 100 ml @ As Directed STK-MED ONCE .ROUTE ; Start 01/03/17 at 05 :31; Stop 01/03/17 at 05:32; Status DC Active Scripts Active Augmentin 875-125 Tablet (Amoxicillin/Potassium Clav) 1 Each Tablet 1 Tab PO BID Reported Klor-Con M20 (Potassium Chloride) 20 Meq Tab.er.prt 20 Meq PO DAILY LAST DOSE GIVEN: DATE: 01/03/17 TIME: 929 NEXT DOSE DUE: DATE: 01/04/17 TIME: 899 Buspirone Hcl 5 Mg Tablet 5 Mg PO DAILY LAST DOSE GIVEN: DATE: 01/03/17 TIME: 929 NEXT DOSE DUE: DATE: 01/04/17 TIME: 899 Tylenol (Acetaminophen) 325 Mg Tablet 650 Mg PO PRN Q6HRS PRN LAST DOSE GIVEN: DATE: 01/02/17 TIME: 2109 NEXT DOSE DUE: PRN/As Needed DATE: TIME: Hydrocortisone 453.6 Gm Cream..g. 1 Stephanie TP PRN BID PRN APPLY TO RECTUM PRN/As Needed Rivastigmine (Rivastigmine Tartrate) 1.5 Mg Capsule 1.5 Mg PO BID LAST DOSE GIVEN: DATE: 01/03/17 TIME: 929 NEXT DOSE DUE: DATE: 01/03/17 TIME: 2100 Colace (Docusate Sodium) 100 Mg Capsule 100 Mg PO PRN DAILY PRN PRN/As Needed Namenda (Memantine Hcl) 10 Mg Tablet 28 Mg PO DAILY XR TABLET LAST DOSE GIVEN: DATE: 01/03/17 TIME: 929 NEXT DOSE DUE: DATE: 01/04/17 TIME: 0900 Bismatrol (Bismuth Subsalicylate) 262 Mg Tab.chew 262 Mg PO HS PRN PRN/As Needed [Uti-Stat Solution] 1 Packet PO DAILY Not given on this admission Start daily 01/04/17 Milk Of Magnesia (Magnesium Hydroxide) 400 Mg/5 Ml Oral.susp 2,400 Mg PO PRN DAILY PRN PRN/As Needed Mysoline (Primidone) 250 Mg Tablet 500 Mg PO DAILY LAST DOSE GIVEN: DATE: 01/03/17 TIME: 929 NEXT DOSE DUE: DATE: 01/04/17 TIME: 899 Amlodipine Besylate 5 Mg Tablet 5 Mg PO DAILY LAST DOSE GIVEN: DATE: 01/03/17 TIME: 929 NEXT DOSE DUE: DATE: 01/04/17 TIME: 929 Propranolol Hcl 20 Mg Tablet 20 Mg PO DAILY LAST DOSE GIVEN: DATE: 01/03/17 TIME: 929 NEXT DOSE DUE: DATE: 01/04/17 TIME: 899 Prozac (Fluoxetine Hcl) 10 Mg Capsule 10 Mg PO DAILY LAST DOSE GIVEN: DATE: 01/03/17 TIME: 929 NEXT DOSE DUE: DATE: 01/04/17 TIME: 899 Fosamax (Alendronate Sodium) 70 Mg Tablet 70 Mg PO QSU LAST DOSE GIVEN: DATE: TIME: NEXT DOSE DUE: DATE: TIME: Patient Instructions Patient Instuctions Discharge instructions see typewritten instructions. She will be discharged on skilled services. For medications please see RAMA RODRÍGUEZ DO Jan 04, 2017 14:00
== END 2017-01-03 12:05 | DRG 871 ==
LOC: ER 16:44 → 1 SOUTH 18:01 → UNDOADMIN 18:08 → 1 SOUTH 18:08
PROVIDERS: ADMIT Internal Medicine; ATTEND Internal Medicine
DX: A41.9 Sepsis, unspecified organism (principal); J18.9 Pneumonia, unspecified organism; E43 Unspecified severe protein-calorie malnutrition; F03.90 Unspecified dementia, unspecified severity, without behavioral disturbance, psychotic disturbance, mood disturbance, and anxiety; E87.6 Hypokalemia; I10 Essential (primary) hypertension; Y95 Nosocomial condition; M81.0 Age-related osteoporosis without current pathological fracture; G25.0 Essential tremor; Z79.899 Other long term (current) drug therapy; Z68.24 Body mass index [BMI] 24.0-24.9, adult; Z79.1 Long term (current) use of non-steroidal anti-inflammatories (NSAID)
CPT/HCPCS: 36415; 71010; 80048; 80053; 80202; 81001; 83605; 83735; 83880; 84484; 85007; 85027; 87040; 87086; 87641; 93005; 94640; J0456; J0696; J2543; J3370; J7040; J7050; J7620; 97110; 97530; 99285-25; J7030

== ENCOUNTER → 2017-01-11 | Outpatient (CLI) | payer MEDICARE, OTHER ==
[2017-01-03 09:34] VITALS: BP 161/76
[~2017-01-11] MED LIST changes: +ACET325T9 PO; +AMOX1TAB61 PO; +BISM262T6 PO; +BUSP5TAB PO; +DOCU-109 PO; +HYDR453. TP; +MAGN400O7 PO; +POTA20TA4 PO; +PRIM250T28 PO; +RIVA1.5C4 PO; +TRAM50TA PO; +[UNRECOGNIZED DRUG - OTHER] PO
[2017-01-11 10:45] LABS: BASO # 0.1 x10^3/uL (0.0-0.2); BASO % 1 % (0-3); EOS # 0.1 x10^3/uL (0.0-0.7); EOS % 1 % (0-3); HEMATOCRIT 36.2 % (36.0-47.0); HEMOGLOBIN 11.8 g/dL (12.0-15.5); LYMPH # 2.1 x10^3/uL (1.0-4.8); LYMPH % 21 % (24-48); MEAN CORPUSCULAR HEMOGLOBIN 27 pg (25-35); MEAN CORPUSCULAR HGB CONC 33 g/dL (31-37); MEAN CORPUSCULAR VOLUME 84 fL (79-100); MONO # 0.5 x10^3/uL (0.0-1.1); MONO % 6 % (0-9); NEUT % 72 % (31-73); PLATELET COUNT 333 x10^3/uL (140-400); RED BLOOD COUNT 4.32 x10^6/uL (3.50-5.40); WHITE BLOOD COUNT 9.8 x10^3/uL (4.0-11.0)
[2017-01-11 10:50] LABS: ALBUMIN/GLOBULIN RATIO 0.7 (1.0-1.7); CALCIUM 8.8 mg/dL (8.5-10.1); CREATININE 0.9 mg/dL (0.6-1.0); GFR 59.8; POTASSIUM 4.2 mmol/L (3.5-5.1); TOTAL BILIRUBIN 0.2 mg/dL (0.2-1.0); TOTAL PROTEIN 7.2 g/dL (6.4-8.2)
== END | disposition home or self-care (01) ==
LOC: SPEC 09:50
PROVIDERS: ATTEND Internal Medicine
DX: I10 Essential (primary) hypertension (principal); J18.9 Pneumonia, unspecified organism; E87.4 Mixed disorder of acid-base balance
CPT/HCPCS: 36415; 80053; 83735; 85027

== ENCOUNTER 2017-01-31 14:29 | Inpatient (IN) | payer MEDICARE, OTHER ==
[~2017-01-31] VITALS: Ht 165.1 cm; Wt 69.1 kg
[2017-01-31] MEDS ORDERED: IV NORMAL SALINE 1,000ML 1,000 ML IV ONE (15:00)
--- NOTE | 2017-01-31 15:02 | PHYS DOC ---
Past History Past Medical History: Hypertension, Other Past Surgical History: Other Alcohol Use: None Drug Use: None Adult General Chief Complaint Chief Complaint: FEVER HPI HPI Patient is a 81 year old F who presents with cough and a fever. [facility] for having a fever this morning with abrupt of cough. Patient had temperature of 101 and was given Tylenol prior to her arrival. Patient had a history of pneumonia was treated in December for pneumonia. Patient has no complaints. Patient denies any shortness of breath or chest pain. Patient denies any nausea/vomiting/diarrhea. Patient denies any abdominal pain. Patient states she just tired. Review of Systems Review of Systems GEN: Denies fevers, chills, sweats HEENT: Denies blurred vision, sore throat CV: Denies chest pain RESP: Denies shortness of air, cough GI: Denies n/v/d NEURO: Denies confusion, dizziness MSK: Denies weakness, joint pain/swelling Current Medications Current Medications Current Medications Medications (Trade) Dose Ordered Sig/Sophie Start Time Stop Time Status Last Admin Dose Admin Sodium Chloride 1,000 ml @ 1,000 mls/hr 1X ONCE 01/31/17 15:00 01/31/17 15:59 Allergies Allergies Allergies Coded Allergies Type Severity Reaction Last Updated Verified No Known Drug Allergies 07/09/13 No Physical Exam Physical Exam GEN.: No apparent distress. Alert and oriented. HEENT: Head is normocephalic, atraumatic NECK: Supple. LUNGS: CTAB. HEART: Regular irregular, S1, S2 present. Peripheral pulses intact ABDOMEN: Soft, nontender. Positive bowel sounds. EXTREMITIES: Without any cyanosis. NEUROLOGIC: Normal speech, normal tone PSYCHIATRIC: Normal affect, normal mood. SKIN: No ulcerations Current Patient Data Lab Results Laboratory Tests Test 01/31/17 15:08 White Blood Count 9.1 x10^3/uL Red Blood Count 4.44 x10^6/uL Hemoglobin 12.4 g/dL Hematocrit 37.1 % Mean Corpuscular Volume 84 fL Mean Corpuscular Hemoglobin 28 pg Mean Corpuscular Hemoglobin Concent 33 g/dL Red Cell Distribution Width 16.4 % Platelet Count 184 x10^3/uL Neutrophils (%) (Auto) 74 % Lymphocytes (%) (Auto) 15 % Monocytes (%) (Auto) 8 % Eosinophils (%) (Auto) 2 % Basophils (%) (Auto) 1 % Neutrophils # (Auto) 6.7 x10^3uL Lymphocytes # (Auto) 1.4 x10^3/uL Monocytes # (Auto) 0.7 x10^3/uL Eosinophils # (Auto) 0.2 x10^3/uL Basophils # (Auto) 0.1 x10^3/uL Sodium Level 141 mmol/L Potassium Level 3.9 mmol/L Chloride Level 105 mmol/L Carbon Dioxide Level 26 mmol/L Anion Gap 10 Blood Urea Nitrogen 21 mg/dL Creatinine 0.9 mg/dL Estimated GFR (Cockcroft-Gault) 59.8 BUN/Creatinine Ratio 23 Glucose Level 99 mg/dL Lactic Acid Level 1.5 mmol/L Calcium Level 8.6 mg/dL Total Bilirubin 0.2 mg/dL Aspartate Amino Transf (AST/SGOT) 20 U/L Alanine Aminotransferase (ALT/SGPT) 22 U/L Alkaline Phosphatase 70 U/L Troponin I Quantitative < 0.017 ng/mL Total Protein 7.2 g/dL Albumin 3.1 g/dL Albumin/Globulin Ratio 0.8 Current Medications Medications (Trade) Dose Ordered Sig/Sophie Route PRN Reason Start Time Stop Time Status Last Admin Dose Admin Sodium Chloride 1,000 ml @ 1,000 mls/hr 1X ONCE IV 01/31/17 15:00 01/31/17 15:59 Ceftriaxone Sodium 1 gm/ Sodium Chloride 50 ml @ 100 mls/hr 1X ONCE IV 01/31/17 16:00 01/31/17 16:29 Azithromycin (Zithromax) 500 mg 1X ONCE PO 01/31/17 16:00 01/31/17 16:01 EKG EKG 1503: EKG shows normal sinus rhythm rate of 81 no STEMI [] Radiology/Procedures Radiology/Procedures PORTABLE CHEST 1V Clinical Indication: fever Comparison: Chest radiograph dated 01/03/2017 Findings: Soft tissues of the head and neck of obscure the left lung apex. Patient is rotated to the left. Stable lung volume. Improvement in right upper lobe heterogeneous air space opacities. Stable bibasilar heterogenous air space opacities. Stable pulmonary vasculature. Possible small bilateral pleural effusions. No pneumothorax. The cardiomediastinal silhouette is stable. Stable tortuous and atherosclerotic thoracic aorta. No acute osseous abnormality. IMPRESSION: 1. Improvement in right upper lobe heterogeneous air space opacities 2. Stable bibasilar heterogenous airspace opacities. Findings may relate to atelectasis, although an underlying infectious process would be difficult to exclude. 3. Possible small bilateral pleural effusions[] Course & Med Decision Making Course & Med Decision Making Pertinent Labs and Imaging studies reviewed. (See chart for details) ED course: Patient was seen and examined in the emergency room as septic workup was ordered 1545: Discussed chest x-ray results and lab work with the patient and plan to admit for IV antibiotics 1550: Discussed CC/HP/PMH with Dr. Whitehead and recommends admit [] [] Dragon Disclaimer Dragon Disclaimer This chart was dictated in whole or in part using Voice Recognition software in a busy, high-work load, and often noisy Emergency Department environment. It may contain unintended and wholly unrecognized errors or omissions. Departure Departure: Impression: Primary Impression: Pneumonia Disposition: ADMITTED INPATIENT Admitting Physician: Ifrah Whitehead Condition: STABLE Referrals: RADHA DOMINGO MD (PCP) JEAN-PAUL POWELL DO Jan 31, 2017 15:02
--- NOTE | 2017-01-31 15:16 | EKG ---
[address] [address] Test Date: 2017-01-31 Test Time: 15:01:31 Pat Name: SONYA ADAIR Department: Room: Gender: F Hooker On: ROHAN : 1935 Requested By: JEAN-PAUL POWELL Order Number: [id number] MD: John Bolivar Measurements Intervals [place] Rate: 81 P: -3 SD: 148 QRS: 23 QRSD: 100 T: 31 QT: 360 QTc: 419 Interpretive Statements SINUS RHYTHM Electronically Signed On 02-02-2017 8:50:35 CDT by John Bolivar
[2017-01-31 15:24] LABS: BASO # 0.1 x10^3/uL (0.0-0.2); BASO % 1 % (0-3); EOS # 0.2 x10^3/uL (0.0-0.7); EOS % 2 % (0-3); HEMATOCRIT 37.1 % (36.0-47.0); HEMOGLOBIN 12.4 g/dL (12.0-15.5); LYMPH # 1.4 x10^3/uL (1.0-4.8); LYMPH % 15 % (24-48); MEAN CORPUSCULAR HEMOGLOBIN 28 pg (25-35); MEAN CORPUSCULAR HGB CONC 33 g/dL (31-37); MEAN CORPUSCULAR VOLUME 84 fL (79-100); MONO # 0.7 x10^3/uL (0.0-1.1); MONO % 8 % (0-9); NEUT # 6.7 x10^3uL (1.8-7.7); NEUT % 74 % (31-73); PLATELET COUNT 184 x10^3/uL (140-400); RED BLOOD COUNT 4.44 x10^6/uL (3.50-5.40); RED CELL DISTRIBUTION WIDTH 16.4 % (11.5-14.5); WHITE BLOOD COUNT 9.1 x10^3/uL (4.0-11.0)
[2017-01-31 15:34] LABS: ALBUMIN 3.1 g/dL (3.4-5.0); ALBUMIN/GLOBULIN RATIO 0.8 (1.0-1.7); CALCIUM 8.6 mg/dL (8.5-10.1); CREATININE 0.9 mg/dL (0.6-1.0); GFR 59.8; POTASSIUM 3.9 mmol/L (3.5-5.1); TOTAL BILIRUBIN 0.2 mg/dL (0.2-1.0); TOTAL PROTEIN 7.2 g/dL (6.4-8.2)
--- NOTE | 2017-01-31 15:39 | RAD ---
PORTABLE CHEST 1V Clinical Indication: fever Comparison: Chest radiograph dated 01/03/2017 Findings: Soft tissues of the head and neck of obscure the left lung apex. Patient is rotated to the left. Stable lung volume. Improvement in right upper lobe heterogeneous air space opacities. Stable bibasilar heterogenous air space opacities. Stable pulmonary vasculature. Possible small bilateral pleural effusions. No pneumothorax. The cardiomediastinal silhouette is stable. Stable tortuous and atherosclerotic thoracic aorta. No acute osseous abnormality. IMPRESSION: 1. Improvement in right upper lobe heterogeneous air space opacities 2. Stable bibasilar heterogenous airspace opacities. Findings may relate to atelectasis, although an underlying infectious process would be difficult to exclude. 3. Possible small bilateral pleural effusions
[2017-01-31] MEDS ORDERED: IV NORMAL SALINE 50ML 50 ML ONE (15:56)
[2017-01-31] MEDS ORDERED: cefTRIAXone SODIUM 1 GM VIAL IV ONE (15:56)
[2017-01-31] MEDS: AZITHROMYCIN 250 MG TABLET. PO ONE ×2 (16:00→16:09)
[2017-01-31] MEDS ORDERED: MORPHINE SULFATE 4 MG/ML DISP.SYRIN. IV PRN (16:00)
[2017-01-31] MEDS ORDERED: ACETAMINOPHEN 325 MG TABLET PO PRN ×3 (16:00→21:30)
[2017-01-31] MEDS ORDERED: ONDANSETRON PF 4 MG/2 ML VIAL. IV PRN (16:00)
[2017-01-31] MEDS ORDERED: AZITHROMYCIN 500 MG VIAL. IV ONE (16:15)
[2017-01-31] MEDS ORDERED: IV NORMAL SALINE 250ML 250 ML ONE (16:15)
[2017-01-31 16:17] LABS: BACTERIA,URINE MOD /HPF (0-FEW); BILIRUBIN,URINE NEG (NEG); CLARITY,URINE HAZY; COLOR,URINE YELLOW; GLUCOSE,URINE NEG (NEG); NITRITE,URINE NEG (NEG); SQUAMOUS EPITHELIAL CELL,UR FEW /LPF; UROBILINOGEN,URINE 0.2 mg/dL (0.2 mg/dL); WBC,URINE >40 /HPF (0-4)
[2017-01-31] MEDS ORDERED: AZITHROMYCIN 500 MG in IV NORMAL SALINE 250ML 250 ML IV ONE (16:50)
[2017-01-31 17:55] VITALS: BP 163/80
[2017-01-31] MEDS ORDERED: ALBU2.5V14 NEB (18:35)
[2017-01-31] MEDS: IV NORMAL SALINE 1,000ML 1,000 ML IV SCH (20:32)
[2017-01-31] MEDS: POTASSIUM CHLORIDE 20 MEQ TABLET.ER. PO SCH (21:06)
[2017-01-31] MEDS: RIVASTIGMINE. 1.5 MG CAPSULE. PO SCH (21:06)
[2017-01-31 21:26] VITALS: BP 166/73
[2017-01-31] MEDS ORDERED: HYDROCORTISONE 1% TOPICAL CREAM 30GM TUBE. TP PRN (21:30)
[2017-01-31] MEDS ORDERED: DOCUSATE SODIUM 100 MG CAPSULE PO PRN (21:30)
[2017-01-31] MEDS ORDERED: MAGNESIUM HYDROXIDE 2,400 MG/30 ML ORAL.SUSP. PO PRN (21:30)
[2017-02-01] MEDS: IV NORMAL SALINE 1,000ML 1,000 ML IV SCH ×2 (05:20→09:47)
[2017-02-01] MEDS ORDERED: ALBUTEROL SULFATE 2.5 MG/3 ML NEBU. ONE (05:34)
[2017-02-01 06:01] VITALS: BP 144/71
[2017-02-01 06:46] LABS: BASO # 0.1 x10^3/uL (0.0-0.2); BASO % 1 % (0-3); EOS # 0.1 x10^3/uL (0.0-0.7); EOS % 2 % (0-3); HEMATOCRIT 31.7 % (36.0-47.0); HEMOGLOBIN 10.6 g/dL (12.0-15.5); LYMPH # 1.4 x10^3/uL (1.0-4.8); LYMPH % 27 % (24-48); MEAN CORPUSCULAR HEMOGLOBIN 28 pg (25-35); MEAN CORPUSCULAR HGB CONC 34 g/dL (31-37); MEAN CORPUSCULAR VOLUME 85 fL (79-100); MONO # 0.7 x10^3/uL (0.0-1.1); MONO % 13 % (0-9); NEUT % 57 % (31-73); PLATELET COUNT 129 x10^3/uL (140-400); RED BLOOD COUNT 3.74 x10^6/uL (3.50-5.40); RED CELL DISTRIBUTION WIDTH 16.6 % (11.5-14.5); WHITE BLOOD COUNT 5.3 x10^3/uL (4.0-11.0)
[2017-02-01 06:56] LABS: ALBUMIN 2.5 g/dL (3.4-5.0); ALBUMIN/GLOBULIN RATIO 0.7 (1.0-1.7); CALCIUM 7.8 mg/dL (8.5-10.1); CREATININE 0.7 mg/dL (0.6-1.0); GFR 79.9; MAGNESIUM 1.4 mg/dL (1.8-2.4); POTASSIUM 3.8 mmol/L (3.5-5.1); TOTAL BILIRUBIN 0.2 mg/dL (0.2-1.0)
[2017-02-01] MEDS ORDERED: MAGNESIUM SULFATE 2GM 50 ML IV ONE (08:30)
[2017-02-01] MEDS: PRIMIDONE 250 MG TABLET PO SCH (08:36)
[2017-02-01] MEDS: POTASSIUM CHLORIDE 20 MEQ TABLET.ER. PO SCH ×3 (08:36→20:22)
[2017-02-01] MEDS: amLODIPine BESYLATE 5 MG TABLET PO SCH (08:36)
[2017-02-01] MEDS: FLUoxetine HCL 10 MG CAPSULE PO SCH (08:36)
[2017-02-01] MEDS: PROPRANOLOL 20 MG TABLET. PO SCH (08:37)
[2017-02-01] MEDS: busPIRone 5 MG TABLET. PO SCH (08:37)
[2017-02-01] MEDS: MEMANTINE 10 MG TABLET. PO SCH ×2 (08:37→20:21)
[2017-02-01] MEDS: RIVASTIGMINE. 1.5 MG CAPSULE. PO SCH ×2 (08:37→20:21)
[2017-02-01] MEDS: AZITHROMYCIN 250 MG TABLET. PO SCH (08:37)
[2017-02-01] MEDS ORDERED: [UNRECOGNIZED DRUG - OTHER] PO SCH (09:00)
[2017-02-01] MEDS: ALBUTEROL SULFATE 2.5 MG/0.5 ML NEBU. NEB SCH ×3 (09:42→21:40)
[2017-02-01 11:19] VITALS: BP 155/68
[2017-02-01 13:45] VITALS: BP 137/63
--- NOTE | 2017-02-01 15:16 | HP ---
ADMIT DATE: 02/01/2017 REASON FOR ADMISSION: Fever and cough. 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 She was found to have looks like bilateral lower lobe infiltrates and so was admitted. PAST MEDICAL HISTORY: She has a previous admission 12/30/2016 for pneumonia at that time. Other problems include frequent UTIs, osteoporosis, cognitive impairment, severe essential tremor, and possible aspiration. PAST SURGICAL HISTORY: Unknown. FAMILY HISTORY: Unknown. 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 No smoking or alcohol. ALLERGIES: None. MEDICATIONS: Reviewed and are available on the MAR. REVIEW OF SYSTEMS: The patient complains of being fatigued and tired, otherwise is somewhat confused and does not complain of anything of consequence. OBJECTIVE: VITAL SIGNS: Blood pressure this morning 144/71, pulse 85, O2 sat is 96% on 2 liters, T max here in the hospital was 99.7 yesterday afternoon. Height 65 inches, weight 150 pounds. GENERAL: Frail elderly female, in no acute distress. She is mildly hard of hearing. HEENT: Her eyes are clear. Her nose was patent. Throat was clear. Tongue is midline. NECK: Supple, without adenopathy. LUNGS: With a few crackles in the bases, very few. CARDIOVASCULAR: Regular rhythm and rate. ABDOMEN: Soft, nontender, good bowel sounds. EXTREMITIES: Without edema. NEUROLOGIC: She has severe essential tremor. Speech evaluation showed the patient to have mild oropharynx dysphagia. LABORATORY DATA: CBC: White blood cell count is normal, hemoglobin 10.6, hematocrit 31.7, 129,000 platelets. CMP: Magnesium is 1.4, lactic acid was 2.5 and it had been 1.5. Urinalysis greater than 40 white cells, moderate leukocyte esterase, negative nitrites. ASSESSMENT: 1. Left lower lobe infiltrates. 2. Aspiration risk. We will place on a dysphagia 1 diet. 3. Evidence of urinary tract infection, will be covered with ceftriaxone. 4. Normochromic normocytic anemia. 5. Hypomagnesemia. 6. Thrombocytopenia, believe this is transient. 7. Mild protein malnutrition. PLAN: The patient is on boost for protein malnutrition. She is getting PT and OT. Dysphagia 1 diet. IV antibiotics. Transitioned back to [facility] as soon as possible. RAMA LANDRY DO DR: CARMENCITA/frank JOB#: [id number] / [id number]
[2017-02-01 19:15] VITALS: BP 157/73
--- NOTE | 2017-02-01 22:27 | ACF ---
Admission Criteria Forms PNEUMONIA, COMMUNITY ACQUIRED Clinical Indications for Admission to Inpatient Care (Place 'X' for any and all applicable criteria): Admission to inpatient status for two midnights or more is indicated for ANY ONE of the following (1)(2)(3): [ ]I. Hypoxia [ ]II. Hemodynamic instability [ ]III. Altered mental status that is severe or persistent [ ]IV. Dehydration that is severe or persistent. [ ]V. Bacteremia [ ]. Moderate-risk or high-risk category patients (Pneumonia Severity Index ( PSI) class IV or V, or CURB-65 score of 3 or greater). [X]VII. Intermediate-risk category patients (e.g., PSI class III or CURB-65 score 2) who do not improve with outpatient and observation care treatment [ ]VIII. Outpatient treatment failure as indicated by 1 or more of the following(9): [ ]a) Failure to respond to antibiotic (eg, resistant organism) [ ]b) Clinically significant adverse effects from medication (eg, vomiting) [ ]c) Complications of pneumonia (eg, empyema, bacteremia) [ ]d) Significant worsening of comorbid cond necessitating inpatient care (eg, chronic heart failure) [ ]IX. Appropriate diagnostic testing and treatment unavailable in outpatient or recovery facility (eg, testing or infection control measures unavailable) [ ]X. Respiratory finding (eg. tachypnea) that do not respond to outpatient observation care treatment [ ]XI. Complicated pleural effusions (eg, emphysema, exudative, loculated) [ ]XII. Immunocompromised patients (e.g., AIDS, chronic steroid use) at moderate or high risk based on clinical evaluation. Extended stay beyond goal length of stay may be needed for (20) [ ]a) Unclear diagnosis [ ]b) Pleural disease [ ]c) Severe pneumonia or treatment failure [ ]d) Respiratory failure [ ]e) New onset hyponatremia (serum Na concentration less than 135 mEq/L(mmol/ L) [ ]f) Clinically significant comorbid illness (eg, heart failure, atrial fibrillation with rapid heart rate, alcohol withdrawal, renal insufficiency)(34)(35) [ ]g) Comorbid acute exacerbation of COPD(36) [ ]h) Concomitant diagnosis of malignancy [ ]i) Concomitant altered mental status [ ]j) Culture-identified Gram-negative or antibiotic-resistant organism (eg, Pseudomonas, methicillin-resistant Staphylococcus aureus MRSA)(30) [ ]k) Healthcare-associated pneumonia (36) The original [facility] content created by [facility] has been revised. The portions of the content which have been revised are identified through the use of italic text, and [facility] has neither reviewed nor approved the modified material. All other unmodified content is copyright [facility]. Please see references footnoted in the original [facility] edition 2015 Admission Criteria Met?: Yes DOUG REYNOSO Feb 01, 2017 22:27
[2017-02-01 23:40] VITALS: BP 143/87
[2017-02-02] MEDS ORDERED: ALBUTEROL SULFATE 2.5 MG/3 ML NEBU. ONE (05:18)
[2017-02-02] MEDS: ALBUTEROL SULFATE 2.5 MG/0.5 ML NEBU. NEB SCH ×2 (05:30→10:51)
[2017-02-02 05:40] VITALS: BP 154/78
[2017-02-02 08:36] LABS: BASO # 0.1 x10^3/uL (0.0-0.2); BASO % 2 % (0-3); EOS # 0.1 x10^3/uL (0.0-0.7); EOS % 4 % (0-3); HEMATOCRIT 36.5 % (36.0-47.0); HEMOGLOBIN 12.2 g/dL (12.0-15.5); LYMPH # 1.5 x10^3/uL (1.0-4.8); LYMPH % 40 % (24-48); MEAN CORPUSCULAR HEMOGLOBIN 28 pg (25-35); MEAN CORPUSCULAR HGB CONC 33 g/dL (31-37); MEAN CORPUSCULAR VOLUME 84 fL (79-100); MONO # 0.4 x10^3/uL (0.0-1.1); MONO % 11 % (0-9); NEUT # 1.6 x10^3uL (1.8-7.7); NEUT % 43 % (31-73); PLATELET COUNT 162 x10^3/uL (140-400); RED BLOOD COUNT 4.37 x10^6/uL (3.50-5.40); RED CELL DISTRIBUTION WIDTH 16.5 % (11.5-14.5); WHITE BLOOD COUNT 3.7 x10^3/uL (4.0-11.0)
[2017-02-02 08:44] LABS: ALBUMIN 2.9 g/dL (3.4-5.0); ALBUMIN/GLOBULIN RATIO 0.7 (1.0-1.7); CALCIUM 8.6 mg/dL (8.5-10.1); CREATININE 0.8 mg/dL (0.6-1.0); GFR 68.5; MAGNESIUM 1.8 mg/dL (1.8-2.4); POTASSIUM 3.8 mmol/L (3.5-5.1); TOTAL BILIRUBIN 0.2 mg/dL (0.2-1.0); TOTAL PROTEIN 7.1 g/dL (6.4-8.2)
[2017-02-02] MEDS: POTASSIUM CHLORIDE 20 MEQ TABLET.ER. PO SCH (08:56)
[2017-02-02] MEDS: MEMANTINE 10 MG TABLET. PO SCH (08:57)
[2017-02-02] MEDS: amLODIPine BESYLATE 5 MG TABLET PO SCH (08:57)
[2017-02-02] MEDS: FLUoxetine HCL 10 MG CAPSULE PO SCH (08:57)
[2017-02-02] MEDS: busPIRone 5 MG TABLET. PO SCH (08:57)
[2017-02-02] MEDS: PROPRANOLOL 20 MG TABLET. PO SCH (08:58)
[2017-02-02] MEDS: PRIMIDONE 250 MG TABLET PO SCH (08:58)
[2017-02-02] MEDS: RIVASTIGMINE. 1.5 MG CAPSULE. PO SCH (08:58)
[2017-02-02] MEDS: AZITHROMYCIN 250 MG TABLET. PO SCH (08:59)
[2017-02-02] MEDS ORDERED: IPRA3AMP NEB (09:58)
[2017-02-02] MEDS ORDERED: AZIT250T6 PO (09:58)
[2017-02-02] MEDS ORDERED: DOXY100C2 PO (09:58)
[2017-02-02] MEDS ORDERED: guaiFENesin DM 600/30MG 1 TAB TAB.ER.12H PO SCH (10:30)
[2017-02-02 10:45] VITALS: BP 147/76
--- NOTE | 2017-02-02 11:43 | PDOC3 ---
Discharge Summary Visit Information Date of Admission: Jan 31, 2017 Date of Discharge: Feb 02, 2017 Final Diagnosis 1. Left lower lobe infiltrates. 2. Aspiration risk. We will place on a dysphagia 1 diet. 3. Evidence of urinary tract infection,-gram neg rods 4. Normochromic normocytic anemia. 5. Hypomagnesemia. 6. Thrombocytopenia, believe this is transient. 7. Mild protein malnutrition. 8. Severe tremor 9. Fall risk Problems: Brief Hospital Course Allergies Allergies Coded Allergies Type Severity Reaction Last Updated Verified No Known Drug Allergies 07/09/13 No Vital Signs Vital Signs Date Time Temp Pulse Resp B/P (MAP) Pulse Ox O2 Delivery O2 Flow Rate FiO2 02/02/17 10:52 95 Room Air 02/02/17 10:45 98.3 77 20 147/76 (99) 02/02/17 05:40 2.0 Lab Results Laboratory Tests Test 01/31/17 15:08 01/31/17 15:39 01/31/17 17:58 01/31/17 19:57 White Blood Count 9.1 x10^3/uL (4.0-11.0) Red Blood Count 4.44 x10^6/uL (3.50-5.40) Hemoglobin 12.4 g/dL (12.0-15.5) Hematocrit 37.1 % (36.0-47.0) Mean Corpuscular Volume 84 fL (79-100) Mean Corpuscular Hemoglobin 28 pg (25-35) Mean Corpuscular Hemoglobin Concent 33 g/dL (31-37) Red Cell Distribution Width 16.4 % (11.5-14.5) Platelet Count 184 x10^3/uL (140-400) Neutrophils (%) (Auto) 74 % (31-73) Lymphocytes (%) (Auto) 15 % (24-48) Monocytes (%) (Auto) 8 % (0-9) Eosinophils (%) (Auto) 2 % (0-3) Basophils (%) (Auto) 1 % (0-3) Neutrophils # (Auto) 6.7 x10^3uL (1.8-7.7) Lymphocytes # (Auto) 1.4 x10^3/uL (1.0-4.8) Monocytes # (Auto) 0.7 x10^3/uL (0.0-1.1) Eosinophils # (Auto) 0.2 x10^3/uL (0.0-0.7) Basophils # (Auto) 0.1 x10^3/uL (0.0-0.2) Sodium Level 141 mmol/L (136-145) Potassium Level 3.9 mmol/L (3.5-5.1) Chloride Level 105 mmol/L (98-107) Carbon Dioxide Level 26 mmol/L (21-32) Anion Gap 10 (6-14) Blood Urea Nitrogen 21 mg/dL (7-20) Creatinine 0.9 mg/dL (0.6-1.0) Estimated GFR (Cockcroft-Gault) 59.8 BUN/Creatinine Ratio 23 (6-20) Glucose Level 99 mg/dL (70-99) Lactic Acid Level 1.5 mmol/L (0.4-2.0) 2.5 mmol/L (0.4-2.0) Calcium Level 8.6 mg/dL (8.5-10.1) Total Bilirubin 0.2 mg/dL (0.2-1.0) Aspartate Amino Transf (AST/SGOT) 20 U/L (15-37) Alanine Aminotransferase (ALT/SGPT) 22 U/L (14-59) Alkaline Phosphatase 70 U/L (46-116) Troponin I Quantitative < 0.017 ng/mL (0-0.055) Total Protein 7.2 g/dL (6.4-8.2) Albumin 3.1 g/dL (3.4-5.0) Albumin/Globulin Ratio 0.8 (1.0-1.7) Urine Collection Type U cath Urine Color Yellow Urine Clarity Hazy Urine pH 5.0 Urine Specific [place] 1.025 Urine Protein Neg (NEG-TRACE) Urine Glucose (UA) Neg mg/dL (NEG) Urine Ketones (Stick) Neg mg/dL (NEG) Urine Blood Trace (NEG) Urine Nitrite Neg (NEG) Urine Bilirubin Neg (NEG) Urine Urobilinogen Dipstick 0.2 mg/dL (0.2 mg/dL) Urine Leukocyte Esterase Mod (NEG) Urine RBC 3-5 /HPF (0-2) Urine WBC >40 /HPF (0-4) Urine Squamous Epithelial Cells Few /LPF Urine Bacteria Mod /HPF (0-FEW) Nasal Screen MRSA (PCR) Negative (Negative) Test 7/26/17 06:27 02/02/17 08:25 White Blood Count 5.3 x10^3/uL (4.0-11.0) 3.7 x10^3/uL (4.0-11.0) Red Blood Count 3.74 x10^6/uL (3.50-5.40) 4.37 x10^6/uL (3.50-5.40) Hemoglobin 10.6 g/dL (12.0-15.5) 12.2 g/dL (12.0-15.5) Hematocrit 31.7 % (36.0-47.0) 36.5 % (36.0-47.0) Mean Corpuscular Volume 85 fL (79-100) 84 fL (79-100) Mean Corpuscular Hemoglobin 28 pg (25-35) 28 pg (25-35) Mean Corpuscular Hemoglobin Concent 34 g/dL (31-37) 33 g/dL (31-37) Red Cell Distribution Width 16.6 % (11.5-14.5) 16.5 % (11.5-14.5) Platelet Count 129 x10^3/uL (140-400) 162 x10^3/uL (140-400) Neutrophils (%) (Auto) 57 % (31-73) 43 % (31-73) Lymphocytes (%) (Auto) 27 % (24-48) 40 % (24-48) Monocytes (%) (Auto) 13 % (0-9) 11 % (0-9) Eosinophils (%) (Auto) 2 % (0-3) 4 % (0-3) Basophils (%) (Auto) 1 % (0-3) 2 % (0-3) Neutrophils # (Auto) 3.0 x10^3uL (1.8-7.7) 1.6 x10^3uL (1.8-7.7) Lymphocytes # (Auto) 1.4 x10^3/uL (1.0-4.8) 1.5 x10^3/uL (1.0-4.8) Monocytes # (Auto) 0.7 x10^3/uL (0.0-1.1) 0.4 x10^3/uL (0.0-1.1) Eosinophils # (Auto) 0.1 x10^3/uL (0.0-0.7) 0.1 x10^3/uL (0.0-0.7) Basophils # (Auto) 0.1 x10^3/uL (0.0-0.2) 0.1 x10^3/uL (0.0-0.2) Sodium Level 142 mmol/L (136-145) 140 mmol/L (136-145) Potassium Level 3.8 mmol/L (3.5-5.1) 3.8 mmol/L (3.5-5.1) Chloride Level 108 mmol/L (98-107) 103 mmol/L (98-107) Carbon Dioxide Level 28 mmol/L (21-32) 32 mmol/L (21-32) Anion Gap 6 (6-14) 5 (6-14) Blood Urea Nitrogen 14 mg/dL (7-20) 10 mg/dL (7-20) Creatinine 0.7 mg/dL (0.6-1.0) 0.8 mg/dL (0.6-1.0) Estimated GFR (Cockcroft-Gault) 79.9 68.5 BUN/Creatinine Ratio 20 (6-20) 13 (6-20) Glucose Level 102 mg/dL (70-99) 128 mg/dL (70-99) Calcium Level 7.8 mg/dL (8.5-10.1) 8.6 mg/dL (8.5-10.1) Magnesium Level 1.4 mg/dL (1.8-2.4) 1.8 mg/dL (1.8-2.4) Total Bilirubin 0.2 mg/dL (0.2-1.0) 0.2 mg/dL (0.2-1.0) Aspartate Amino Transf (AST/SGOT) 16 U/L (15-37) 21 U/L (15-37) Alanine Aminotransferase (ALT/SGPT) 16 U/L (14-59) 19 U/L (14-59) Alkaline Phosphatase 49 U/L (46-116) 55 U/L (46-116) Total Protein 6.0 g/dL (6.4-8.2) 7.1 g/dL (6.4-8.2) Albumin 2.5 g/dL (3.4-5.0) 2.9 g/dL (3.4-5.0) Albumin/Globulin Ratio 0.7 (1.0-1.7) 0.7 (1.0-1.7) Brief Hospital Course Ms. Baxter is a 81 old female who presented with fever cough and shortness of breath. She was found to have bilateral lower lobe infiltrates and was treated for pneumonia. Is also found to have gram-negative rods growing in her urine. She was treated with ceftriaxone and Zithromax while in the hospital and was sent home on doxycycline. Culture is pending. She tolerated her hospitalization well. She was seen ambulating in the [facility] with physical therapy. She was mildly hypoxic and responded to low-dose oxygen. Discharge Information Condition at Discharge: Improved, Stable Disposition/Orders: D/C to Another Facility Dischare Medications Current Medications Sodium Chloride 1,000 ml @ 1,000 mls/hr 1X ONCE IV Last administered on 16:04; Start 01/31/17 at 15:00; Stop 01/31/17 at 15:59; Status DC Ceftriaxone Sodium 1 gm/ Sodium Chloride 50 ml @ 100 mls/hr 1X ONCE IV Last administered on 01/31/17 16:07; Start 01/31/17 at 16:00; Stop 01/31/17 at 16:29 ; Status DC Azithromycin (Zithromax) 500 mg 1X ONCE PO ; Start 01/31/17 at 16:00; Stop at 16:01; Status DC Sodium Chloride 50 ml @ As Directed STK-MED ONCE .ROUTE ; Start 01/31/17 at 15: 56; Stop 01/31/17 at 15:57; Status DC Ceftriaxone Sodium (Rocephin) 1 gm STK-MED ONCE IV ; Start 01/31/17 at 15:56; Stop 01/31/17 at 15:57; Status DC Ondansetron HCl (Zofran) 4 mg PRN Q4HRS PRN IV NAUSEA/VOMITING; Start 01/31/17 at 16:00; Stop 02/01/17 at 15:59; Status DC Morphine Sulfate (Morphine 4mg Syringe) 4 mg PRN Q2HR PRN IV PAIN; Start at 16:00; Stop 02/01/17 at 15:59; Status DC Sodium Chloride 1,000 ml @ 75 mls/hr [id number] IV Last administered on 09:47; Start 01/31/17 at 16:00; Stop 02/01/17 at 15:59; Status DC Acetaminophen (Tylenol) 650 mg PRN Q4HRS PRN PO FEVER; Start 01/31/17 at 16:00 ; Stop 01/31/17 at 18:07; Status DC Azithromycin (Zithromax) 500 mg STK-MED ONCE IV ; Start 01/31/17 at 16:15; Stop 01/31/17 at 16:16; Status DC Sodium Chloride 250 ml @ As Directed STK-MED ONCE .ROUTE ; Start 01/31/17 at 16 :15; Stop 01/31/17 at 16:16; Status DC Azithromycin 500 mg/Sodium Chloride 250 ml @ 250 mls/hr 1X ONCE IV Last administered on 01/31/17 17:37; Start 01/31/17 at 16:50; Stop 01/31/17 at 17:49 ; Status DC Ceftriaxone Sodium 1 gm/ Sodium Chloride 50 ml @ 100 mls/hr Q24H IV Last administered on 02/01/17 16:37; Start 02/01/17 at 16:00 Azithromycin (Zithromax) 250 mg DAILY PO Last administered on 02/02/17 08:59; Start 02/01/17 at 09:00; Stop 02/04/17 at 21:00 Acetaminophen (Tylenol) 650 mg PRN Q8HRS PRN PO PAIN / TEMP Last administered on 01/31/17 21:06; Start 01/31/17 at 18:00; Stop 01/31/17 at 21:26; Status DC Potassium Chloride (Klor-Con) 20 meq TID PO Last administered on 02/02/17 08: 56; Start 01/31/17 at 21:00 Rivastigmine Tartrate (Exelon) 1.5 mg BID PO Last administered on 02/02/17 08: 58; Start 01/31/17 at 21:00 Acetaminophen (Tylenol) 650 mg PRN Q6HRS PRN PO PAIN / TEMP Last administered on 02/01/17 20:21; Start 01/31/17 at 21:30 Albuterol Sulfate (Ventolin) 2.5 mg TID NEB Last administered on 02/02/17 10: 51; Start 02/01/17 at 09:00 Amlodipine Besylate (Norvasc) 5 mg DAILY PO Last administered on 02/02/17 08: 57; Start 02/01/17 at 09:00 Buspirone HCl (Buspar) 5 mg DAILY PO Last administered on 02/02/17 08:57; Start 02/01/17 at 09:00 Docusate Sodium (Colace) 100 mg PRN DAILY PRN PO CONSTIPATION; Start 01/31/17 at 21:30 Fluoxetine HCl (PROzac) 10 mg DAILY PO Last administered on 02/02/17 08:57; Start 02/01/17 at 09:00 Hydrocortisone (Cortaid) 1 stephanie PRN BID PRN TP ITCHING Last administered on 02/01 20:21; Start 01/31/17 at 21:30 Magnesium Hydroxide (Milk Of Magnesia) 2,400 mg PRN DAILY PRN PO CONSTIPATION; Start 01/31/17 at 21:30 Memantine (Namenda) 10 mg BID PO Last administered on 02/02/17 08:57; Start at 09:00 Primidone (Mysoline) 500 mg DAILY PO Last administered on 02/02/17 08:58; Start 02/01/17 at 09:00 Propranolol HCl (Inderal) 20 mg DAILY PO Last administered on 02/02/17 08:58; Start 02/01/17 at 09:00 Non-Formulary Medication 1 packet DAILY PO ; Start 02/01/17 at 09:00; Stop 02/01 at 09:00; Status DC Albuterol Sulfate (Ventolin) 2.5 mg STK-MED ONCE .ROUTE Last administered on 05:38; Start 02/01/17 at 05:34; Stop 02/01/17 at 05:35; Status DC Magnesium Sulfate 50 ml @ 25 mls/hr 1X ONCE IV Last administered on 02/01/17 08:36; Start 02/01/17 at 08:30; Stop 02/01/17 at 10:29; Status DC Albuterol Sulfate (Ventolin) 2.5 mg STK-MED ONCE .ROUTE Last administered on 05:18; Start 02/02/17 at 05:18; Stop 02/02/17 at 05:19; Status DC Guaifenesin (MUCINEX ER with DM) 1 tab BID PO Last administered on 02/02/17 11 :23; Start 02/02/17 at 10:30 Active Scripts Active Doxycycline Hyclate 100 Mg Capsule 1 Cap PO BID Duoneb 0.5-3(2.5) Mg/3 Ml (Albuterol/Ipratropium) 3 Ml Ampul.neb 3 Ml NEB TID PRN 90 Days Azithromycin Tablet (Azithromycin) 250 Mg Tablet 250 Mg PO DAILY 3 Days Reported Klor-Con M20 (Potassium Chloride) 20 Meq Tab.er.prt 20 Meq PO TID LAST DOSE GIVEN: DATE: TODAY TIME: AM NEXT DOSE DUE: DATE: TODAY TIME: AFTERNOON Buspirone Hcl 5 Mg Tablet 5 Mg PO DAILY LAST DOSE GIVEN: DATE: TODAY TIME: AM NEXT DOSE DUE: DATE: TOMORROW TIME: AM Tylenol (Acetaminophen) 325 Mg Tablet 650 Mg PO PRN Q6HRS PRN LAST DOSE GIVEN: DATE: 02/02/17 TIME: 2020 NEXT DOSE DUE: DATE: TODAY TIME: IF NEEDED Hydrocortisone 453.6 Gm Cream..g. 1 Stephanie TP PRN BID PRN APPLY TO RECTUM PRN/As Needed Rivastigmine (Rivastigmine Tartrate) 1.5 Mg Capsule 1.5 Mg PO BID LAST DOSE GIVEN: DATE: TODAY TIME: AM NEXT DOSE DUE: DATE: TODAY TIME: PM Colace (Docusate Sodium) 100 Mg Capsule 100 Mg PO PRN DAILY PRN LAST DOSE GIVEN: NOT GIVEN THIS ADMISSION NEXT DOSE DUE: DATE: TODAY TIME: IF NEEDED Namenda (Memantine Hcl) 10 Mg Tablet 28 Mg PO DAILY LAST DOSE GIVEN: DATE: TODAY TIME: AM NEXT DOSE DUE: DATE: TOMORROW TIME: AM DATE: 01/04/17 TIME: 0900 Bismatrol (Bismuth Subsalicylate) 262 Mg Tab.chew 262 Mg PO HS PRN LAST DOSE GIVEN: NOT GIVEN THIS ADMISSION NEXT DOSE DUE: DATE: TODAY TIME: AT BEDTIME IF NEEDED [Uti-Stat Solution] 1 Packet PO DAILY LAST DOSE GIVEN: NOT GIVEN THIS ADMISSION NEXT DOSE DUE: DATE: TOMORROW TIME: AM Milk Of Magnesia (Magnesium Hydroxide) 400 Mg/5 Ml Oral.susp 2,400 Mg PO PRN DAILY PRN PRN/As Needed Mysoline (Primidone) 250 Mg Tablet 500 Mg PO DAILY LAST DOSE GIVEN: DATE: TODAY TIME: AM NEXT DOSE DUE: DATE: TOMORROW TIME: AM Amlodipine Besylate 5 Mg Tablet 5 Mg PO DAILY LAST DOSE GIVEN: DATE: TODAY TIME: AM NEXT DOSE DUE: DATE: TOMORROW TIME: AM Propranolol Hcl 20 Mg Tablet 20 Mg PO DAILY LAST DOSE GIVEN: DATE: TODAY TIME: AM NEXT DOSE DUE: DATE: TOMORROW TIME: AM Prozac (Fluoxetine Hcl) 10 Mg Capsule 10 Mg PO DAILY LAST DOSE GIVEN: DATE: TODAY TIME: AM NEXT DOSE DUE: DATE: TOMORROW TIME: AM Patient Instructions Patient Instuctions SEE MRAD/ . WILL SEE HER REGULAR PHYSICIAN AT [facility]. RAMA LANDRY DO Feb 02, 2017 11:43
== END 2017-02-02 11:30 | disposition short-term general hospital (02) | DRG 178 ==
LOC: ER 14:29 → 1 SOUTH 15:58
PROVIDERS: ADMIT Family Medicine; ATTEND Family Medicine
DX: J69.0 Pneumonitis due to inhalation of food and vomit (principal); N39.0 Urinary tract infection, site not specified; E44.1 Mild protein-calorie malnutrition; D69.6 Thrombocytopenia, unspecified; E83.42 Hypomagnesemia; I10 Essential (primary) hypertension; K59.00 Constipation, unspecified; M81.0 Age-related osteoporosis without current pathological fracture; G25.0 Essential tremor; D64.9 Anemia, unspecified; R13.10 Dysphagia, unspecified; Z79.4 Long term (current) use of insulin; Z79.899 Other long term (current) drug therapy; Z91.81 History of falling; Z68.25 Body mass index [BMI] 25.0-25.9, adult
CPT/HCPCS: 36415; 51701; 71010; 80053; 81001; 83605; 83735; 84484; 85027; 87040; 87086; 87186; 87641; 93005; 94640; 94760; 96365; J0456; J0696; J3475; J7050; J7611; J7613; 92610; 97535; 99285-25; J7030

== ENCOUNTER → 2017-03-22 | Outpatient (CLI) | payer MEDICARE, OTHER ==
[~2017-03-22] MED LIST changes: +ALBU2.5V14 NEB; +AZIT250T6 PO; +DOXY100C2 PO; +IPRA3AMP NEB
--- NOTE | 2017-03-22 15:22 | RAD ---
Right knee, 3 views, 03/22/2017: History: Knee pain No fracture or dislocation is identified. No significant arthritic change is seen. No joint effusion is evident. Arterial calcifications are noted. IMPRESSION: No acute right knee abnormality is detected.
== END | disposition home or self-care (01) ==
LOC: DXRAD 14:32
PROVIDERS: ATTEND Internal Medicine
DX: M25.561 Pain in right knee (principal); I70.0 Atherosclerosis of aorta
CPT/HCPCS: 73562

== ENCOUNTER → 2017-03-24 | Outpatient (CLI) | payer MEDICARE, OTHER ==
--- NOTE | 2017-03-24 15:29 | RAD ---
EXAM: CHEST 1 VIEW History: Pneumonia COMPARISON: 01/31/2017 TECHNIQUE: Single portable radiograph of the chest FINDINGS: The cardiac silhouette is unremarkable. The lungs are clear bilaterally. The costophrenic sulci are clear and well demarcated. IMPRESSION: No radiographic evidence of an acute cardiopulmonary process.
== END | disposition home or self-care (01) ==
LOC: DXRAD 14:33
PROVIDERS: ATTEND Internal Medicine
DX: J18.9 Pneumonia, unspecified organism (principal)
CPT/HCPCS: 71010

== ENCOUNTER → 2017-04-05 | Outpatient (CLI) | payer MEDICARE, OTHER ==
--- NOTE | 2017-04-05 09:38 | RAD ---
EXAM: Left knee, 3 views. HISTORY: Pain. COMPARISON: None. FINDINGS: Frontal, lateral and oblique views of the left knee are obtained. There is minimal medial compartment joint space narrowing. There is no fracture, dislocation or subluxation. No effusion is seen. IMPRESSION: 1. Minimal medial compartment joint space narrowing. 2. No acute osseous finding.
== END | disposition home or self-care (01) ==
LOC: DXRAD 09:13
PROVIDERS: ATTEND Internal Medicine
DX: M25.562 Pain in left knee (principal)
CPT/HCPCS: 73562

== ENCOUNTER → 2017-04-16 | Outpatient (CLI) | payer MEDICARE, OTHER ==
[2017-04-16 04:33] LABS: BILIRUBIN,URINE NEG (NEG); CLARITY,URINE HAZY; COLOR,URINE YELLOW; GLUCOSE,URINE NEG (NEG); NITRITE,URINE NEG (NEG); UROBILINOGEN,URINE 0.2 mg/dL (0.2 mg/dL)
[2017-04-16 04:34] LABS: BACTERIA,URINE 0 /HPF (0-FEW); SQUAMOUS EPITHELIAL CELL,UR FEW /LPF
== END | disposition home or self-care (01) ==
LOC: SPEC 02:13
PROVIDERS: ATTEND Internal Medicine
DX: R35.0 Frequency of micturition (principal); R41.0 Disorientation, unspecified; R11.2 Nausea with vomiting, unspecified; K59.00 Constipation, unspecified; R14.3 Flatulence; K30 Functional dyspepsia
CPT/HCPCS: 81001; 87086

== ENCOUNTER → 2017-04-18 | Outpatient (CLI) | payer MEDICARE, OTHER | END | disposition home or self-care (01) | LOC: SPEC 07:41 | PROVIDERS: ATTEND Internal Medicine | DX: I10 Essential (primary) hypertension (principal); J18.9 Pneumonia, unspecified organism | CPT/HCPCS: 80061 ==

== ENCOUNTER → 2017-05-17 | Outpatient (CLI) | payer MEDICARE, OTHER ==
[2017-05-17 12:29] LABS: BASO % 0 % (0-3); EOS # 0.1 x10^3/uL (0.0-0.7); EOS % 1 % (0-3); HEMATOCRIT 37.1 % (36.0-47.0); LYMPH # 1.5 x10^3/uL (1.0-4.8); LYMPH % 12 % (24-48); MEAN CORPUSCULAR HEMOGLOBIN 27 pg (25-35); MEAN CORPUSCULAR HGB CONC 32 g/dL (31-37); MEAN CORPUSCULAR VOLUME 84 fL (79-100); MONO # 0.8 x10^3/uL (0.0-1.1); MONO % 6 % (0-9); NEUT # 10.2 x10^3uL (1.8-7.7); NEUT % 80 % (31-73); PLATELET COUNT 272 x10^3/uL (140-400); RED CELL DISTRIBUTION WIDTH 15.3 % (11.5-14.5); WHITE BLOOD COUNT 12.7 x10^3/uL (4.0-11.0)
[2017-05-17 12:39] LABS: BILIRUBIN,URINE NEG (NEG); CLARITY,URINE HAZY; COLOR,URINE YELLOW; GLUCOSE,URINE NEG (NEG); NITRITE,URINE NEG (NEG); RBC,URINE 0 /HPF (0-2); UROBILINOGEN,URINE 0.2 mg/dL (0.2 mg/dL)
[2017-05-17 12:40] LABS: BACTERIA,URINE MANY /HPF (0-FEW); SQUAMOUS EPITHELIAL CELL,UR FEW /LPF
[2017-05-17 12:41] LABS: ALBUMIN 2.7 g/dL (3.4-5.0); ALBUMIN/GLOBULIN RATIO 0.6 (1.0-1.7); C REACTIVE PROTEIN 151.9 mg/L (0-3.3); CALCIUM 8.5 mg/dL (8.5-10.1); CREATININE 0.9 mg/dL (0.6-1.0); GFR 59.8; POTASSIUM 3.9 mmol/L (3.5-5.1); TOTAL BILIRUBIN 0.3 mg/dL (0.2-1.0); TOTAL PROTEIN 7.1 g/dL (6.4-8.2)
[2017-05-17 13:33] LABS: SEDIMENTATION RATE 75 (0-25)
== END | disposition home or self-care (01) ==
LOC: SPEC 11:57
PROVIDERS: ATTEND Internal Medicine
DX: E87.6 Hypokalemia (principal); F01.50 Vascular dementia, unspecified severity, without behavioral disturbance, psychotic disturbance, mood disturbance, and anxiety; I10 Essential (primary) hypertension
CPT/HCPCS: 36415; 80053; 81001; 84443; 85025; 85651; 86140